=== PATIENT | male | born 1945 | race Caucasian/White ===

== ENCOUNTER 2019-04-30 08:49 | Outpatient (REF) | payer MEDICARE, OTHER, SELFPAY ==
[2019-04-30 19:15] LABS: Anion Gap 11.5 mmol/L (3-11); BUN 24 mg/dL (7-18); CO2 27.5 mmol/L (21.0-32.0); CREATININE 1.29 mg/dL (0.70-1.30); Calcium 9.3 mg/dL (8.5-10.1); Chloride 103 mmol/L (98-107); Glucose 151 mg/dL (70-100); Potassium 3.8 mmol/L (3.5-5.1); Sodium 142 mmol/L (136-145)
== END 2019-04-30 09:09 ==
LOC: NCHCN 08:49
PROVIDERS: PCP Physician Assistant; Visit Provider Physician Assistant Medical
DX: E03.9 Hypothyroidism, unspecified (principal); I10 Essential (primary) hypertension; N18.3 Chronic kidney disease, stage 3 (moderate); E11.9 Type 2 diabetes mellitus without complications
CPT/HCPCS: 80048; 84443

== ENCOUNTER 2019-10-10 11:24 | Outpatient (REF) | payer MEDICARE, OTHER, SELFPAY ==
[2019-10-10 19:41] LABS: TSH 6.98 uIU/mL (0.36-3.74)
== END 2019-10-10 11:44 ==
LOC: NCHCN 11:24
PROVIDERS: PCP Physician Assistant; Visit Provider Physician Assistant
DX: E03.9 Hypothyroidism, unspecified (principal)
CPT/HCPCS: 84443

== ENCOUNTER 2019-12-14 09:05 | Outpatient (REF) | payer MEDICARE, OTHER, SELFPAY | END 2019-12-14 09:25 | LOC: NCHCN 09:05 | PROVIDERS: PCP Physician Assistant; Visit Provider Physician Assistant | DX: E03.9 Hypothyroidism, unspecified (principal) | CPT/HCPCS: 84443 ==

== ENCOUNTER 2020-02-18 09:13 | Outpatient (REF) | payer MEDICARE, OTHER, SELFPAY ==
[2020-02-18 19:40] LABS: TSH (W/Ref FT4) 3.64 uIU/mL (0.36-3.74)
== END 2020-02-18 09:33 ==
LOC: NCHCN 09:13
PROVIDERS: PCP Physician Assistant; Visit Provider Physician Assistant
DX: E03.9 Hypothyroidism, unspecified (principal)
CPT/HCPCS: 84443

== ENCOUNTER 2020-05-02 09:48 | Outpatient (REF) | payer MEDICARE, OTHER, SELFPAY ==
[2020-05-02 19:29] LABS: Abs Immature Grans 0.02 k/cumm (0.0-0.09); Absolute Basophil Count 0.03 k/cumm (0.0-0.2); Absolute Eosinophil Count 0.23 k/cumm (0.0-0.7); Absolute Lymphocyte Count 1.42 k/cumm (1.2-3.4); Absolute Neutrophil Count 3.81 k/cumm (1.2-6.7); Basophils % 0.5; Eosinophils % 3.8; HCT 44.4 % (40.0-50.0); HGB 15.6 g/dL (13.5-17.5); Immature Grans % 0.3 %; Lymphocytes % 23.2; Mean Corp. HGB Concentration 35.1 g/dL (32.0-36.0); Mean Corpuscular Hemoglobin 32.2 pg (27.0-33.0); Mean Corpuscular Volume 91.5 fL (80-95); Mean Platelet Volume 11.9 fL (8.0-11.0); Monocytes % 9.8; Neutrophils % 62.4; Platelet Count 223 x1000/uL (130-400); RBC 4.85 m/cumm (4.50-6.00); RBC Distribution Width 13.1 % (11.8-14.1); White Blood Cell Count 6.11 k/cumm (4.4-10.8)
[2020-05-02 19:54] LABS: ALT 39 U/L (16-63); AST 27 U/L (15-37); Alkaline Phosphatase 66 U/L (46-116); BUN 29 mg/dL (7-18); Bilirubin, Total 1.3 mg/dL (0.2-1.0); CREATININE 1.54 mg/dL (0.70-1.30); Calcium 9.4 mg/dL (8.5-10.1); Calculated LDL 89 mg/dL (<100); Chloride 102 mmol/L (98-107); Cholesterol 144 mg/dL (<200); Estimated GFR 44.38 (mL/min/1.73m2); Glucose 179 mg/dL (74-106); HDL Cholesterol 35 mg/dL (40-60); Potassium 3.8 mmol/L (3.5-5.1); Sodium 140 mmol/L (136-145); TSH (W/Ref FT4) 2.18 uIU/mL (0.36-3.74); Total Protein 7.3 g/dL (6.4-8.2); Triglyceride 102 mg/dL (<150)
== END 2020-05-02 10:08 ==
LOC: NCHCN 09:48
PROVIDERS: PCP Physician Assistant; Visit Provider Physician Assistant
DX: E78.5 Hyperlipidemia, unspecified (principal); E03.9 Hypothyroidism, unspecified; I10 Essential (primary) hypertension; N18.3 Chronic kidney disease, stage 3 (moderate); E11.9 Type 2 diabetes mellitus without complications; I25.10 Atherosclerotic heart disease of native coronary artery without angina pectoris
CPT/HCPCS: 80053; 80061; 84443; 85025

== ENCOUNTER 2020-10-22 18:45 | Outpatient (REF) | payer MEDICARE, OTHER, SELFPAY ==
[2020-10-22 20:40] LABS: ALT 25 U/L (16-63); AST 18 U/L (15-37); Albumin 3.6 g/dL (3.4-5.0); Alkaline Phosphatase 67 U/L (46-116); Anion Gap 6.3 mmol/L (3-11); BUN 32 mg/dL (7-18); Bilirubin, Total 0.6 mg/dL (0.2-1.0); CO2 28.7 mmol/L (21.0-32.0); CREATININE 1.39 mg/dL (0.70-1.30); Calcium 8.9 mg/dL (8.5-10.1); Chloride 105 mmol/L (98-107); Estimated GFR 49.95 (mL/min/1.73m2); Glucose 112 mg/dL (74-106); Potassium 4.3 mmol/L (3.5-5.1); Sodium 140 mmol/L (136-145)
[2020-10-22 20:42] LABS: Hemoglobin A1C 6.4 % (<5.7)
== END 2020-10-22 19:05 ==
LOC: NCHCN 18:45
PROVIDERS: PCP Physician Assistant; Visit Provider Physician Assistant
DX: E11.9 Type 2 diabetes mellitus without complications (principal); I10 Essential (primary) hypertension; I25.10 Atherosclerotic heart disease of native coronary artery without angina pectoris; I25.2 Old myocardial infarction
CPT/HCPCS: 80053; 83036

== ENCOUNTER 2021-02-24 16:15 | Outpatient (REF) | payer MEDICARE, OTHER, SELFPAY ==
[2021-02-24 18:27] LABS: Anion Gap 10.4 mmol/L (3-11); BUN 28 mg/dL (7-18); CO2 27.6 mmol/L (21.0-32.0); CREATININE 1.3 mg/dL (0.70-1.30); Calcium 9.5 mg/dL (8.5-10.1); Chloride 107 mmol/L (98-107); Estimated GFR 53.96 (mL/min/1.73m2); Glucose 114 mg/dL (74-106); Potassium 3.9 mmol/L (3.5-5.1); Sodium 145 mmol/L (136-145)
[2021-02-24 18:35] LABS: Hemoglobin A1C 5.6 % (<5.7)
[2021-02-24 19:05] LABS: COMMENT (LAB VIEW ONLY) 101.42 mg/dL; Microalb ug/mg Crea 22.5 ug/mg Cr
== END 2021-02-24 16:16 | disposition home or self-care (01) ==
LOC: NCHCN 16:15
PROVIDERS: PCP Physician Assistant; Visit Provider Physician Assistant
DX: E11.9 Type 2 diabetes mellitus without complications (principal); I10 Essential (primary) hypertension; N18.30 Chronic kidney disease, stage 3 unspecified
CPT/HCPCS: 80048; 82043; 82570; 83036

== ENCOUNTER → 2021-02-25 13:50 | Outpatient (BNVA) | payer MEDICARE, OTHER, SELFPAY | PROVIDERS: PCP Physician Assistant; Referring Provider Physician Assistant; Visit Provider Psychiatry & Neurology Neurology | DX: I63.9 Cerebral infarction, unspecified (principal); I65.21 Occlusion and stenosis of right carotid artery; R41.3 Other amnesia | CPT/HCPCS: 99205 ==

== ENCOUNTER → 2021-06-22 12:49 | Outpatient (BNVA) | payer MEDICARE, OTHER, SELFPAY | PROVIDERS: PCP Physician Assistant; Referring Provider Physician Assistant; Visit Provider Psychiatry & Neurology Neurology | DX: I63.9 Cerebral infarction, unspecified (principal); I65.21 Occlusion and stenosis of right carotid artery; R41.3 Other amnesia; G25.0 Essential tremor; I10 Essential (primary) hypertension; E11.9 Type 2 diabetes mellitus without complications | CPT/HCPCS: 99213 ==

== ENCOUNTER 2021-06-25 15:18 | Outpatient (REF) | payer MEDICARE, OTHER, SELFPAY ==
[2021-06-25 19:16] LABS: LDL CHOLESTEROL 65 mg/dL (<100); Vitamin B12 247 pg/mL (193-986)
== END 2021-06-25 15:19 | disposition home or self-care (01) ==
LOC: NCHCN 15:18
PROVIDERS: PCP Physician Assistant; Visit Provider Physician Assistant
DX: E11.9 Type 2 diabetes mellitus without complications (principal); I10 Essential (primary) hypertension; I63.9 Cerebral infarction, unspecified; G81.94 Hemiplegia, unspecified affecting left nondominant side
CPT/HCPCS: 83721; 82607

== ENCOUNTER 2021-12-22 18:30 | Outpatient (REF) | payer MEDICARE, MEDICAID, SELFPAY ==
[2021-12-22 21:32] LABS: Anion Gap 11.3 mmol/L (3-11); BUN 28 mg/dL (7-18); CO2 26.7 mmol/L (21.0-32.0); CREATININE 1.7 mg/dL (0.70-1.30); Calcium 9.1 mg/dL (8.5-10.1); Chloride 101 mmol/L (98-107); Estimated GFR 39.49 (mL/min/1.73m2); Glucose 193 mg/dL (74-106); Potassium 3.6 mmol/L (3.5-5.1); Sodium 139 mmol/L (136-145); TSH (W/Ref FT4) 1.04 uIU/mL (0.36-3.74)
== END 2021-12-22 18:31 | disposition home or self-care (01) ==
LOC: NCHCN 18:30
PROVIDERS: PCP Physician Assistant; Visit Provider Physician Assistant
DX: I10 Essential (primary) hypertension (principal); E03.9 Hypothyroidism, unspecified
CPT/HCPCS: 80048; 84443

== ENCOUNTER 2022-01-28 16:48 | Outpatient (REF) | payer MEDICARE, MEDICAID, SELFPAY ==
[2022-01-28 19:24] LABS: Anion Gap 11.8 mmol/L (3-11); BUN 20 mg/dL (7-18); CO2 27.2 mmol/L (21.0-32.0); CREATININE 1.6 mg/dL (0.70-1.30); Calcium 8.7 mg/dL (8.5-10.1); Chloride 104 mmol/L (98-107); Estimated GFR 42.35 (mL/min/1.73m2); Glucose 202 mg/dL (74-106); Potassium 3.3 mmol/L (3.5-5.1); Sodium 143 mmol/L (136-145)
== END 2022-01-28 16:49 | disposition home or self-care (01) ==
LOC: NCHCN 16:48
PROVIDERS: PCP Physician Assistant; Visit Provider Physician Assistant
DX: N18.30 Chronic kidney disease, stage 3 unspecified (principal)
CPT/HCPCS: 80048

== ENCOUNTER 2022-02-18 15:16 | Outpatient (REF) | payer MEDICARE, MEDICAID, SELFPAY ==
[2022-02-18 21:26] LABS: Anion Gap 8.4 mmol/L (3-11); BUN 23 mg/dL (7-18); CO2 31.6 mmol/L (21.0-32.0); CREATININE 1.6 mg/dL (0.70-1.30); Calcium 9.2 mg/dL (8.5-10.1); Chloride 102 mmol/L (98-107); Estimated GFR 42.35 (mL/min/1.73m2); Glucose 150 mg/dL (74-106); Potassium 3.4 mmol/L (3.5-5.1); Sodium 142 mmol/L (136-145)
== END 2022-02-18 15:17 | disposition home or self-care (01) ==
LOC: NCHCN 15:16
PROVIDERS: PCP Physician Assistant; Visit Provider Physician Assistant
DX: N18.30 Chronic kidney disease, stage 3 unspecified (principal)
CPT/HCPCS: 80048

== ENCOUNTER 2022-03-02 17:19 | Outpatient (REF) | payer MEDICARE, MEDICAID, SELFPAY ==
[2022-03-02 18:21] LABS: Abs Immature Grans 0.02 10^3/uL (0.0-0.06); Absolute Basophil Count 0.07 10^3/uL (0.0-0.2); Absolute Eosinophil Count 0.21 10^3/uL (0.0-0.7); Absolute Lymphocyte Count 1.41 10^3/uL (1.2-3.4); Absolute Monocyte Count 0.47 10^3/uL (0.1-0.8); Absolute Neutrophil Count 4.39 10^3/uL (1.2-6.7); Basophils % 1.1; Eosinophils % 3.2; HCT 38.6 % (40.0-50.0); HGB 13.2 g/dL (13.5-17.5); Immature Grans % 0.3; Lymphocytes % 21.5; MCH 33.2 pg (27.0-33.0); MCHC 34.2 % (32.0-36.0); MPV 10.5 fL (8.0-11.0); Monocytes % 7.2; Neutrophils % 66.7; Platelet Count 263 10^3/uL (130-400); RBC 3.98 10^6/uL (4.36-5.78); RDW 12.8 % (11.8-14.1); RDW-SD 45.1 fL; WBC 6.57 10^3/uL (4.4-10.8)
[2022-03-02 19:02] LABS: Hemoglobin A1C 6.5 % (<5.7)
[2022-03-02 19:07] LABS: ALT 26 U/L (16-63); AST 19 U/L (15-37); Albumin 3.5 g/dL (3.4-5.0); Alkaline Phosphatase 79 U/L (46-116); Anion Gap 8.9 mmol/L (3-11); BUN 23 mg/dL (7-18); Bilirubin, Total 0.8 mg/dL (0.2-1.0); CO2 28.1 mmol/L (21.0-32.0); CREATININE 1.5 mg/dL (0.70-1.30); Chloride 104 mmol/L (98-107); Ferritin 370 ng/mL (26-388); Folate 8.7 ng/mL (8.6-20.0); Glucose 154 mg/dL (74-106); Magnesium 1.5 mg/dL (1.8-2.4); Potassium 3.9 mmol/L (3.5-5.1); Sodium 141 mmol/L (136-145); TSH (W/Ref FT4) 2.27 uIU/mL (0.36-3.74); Total Protein 6.7 g/dL (6.4-8.2)
[2022-03-03 05:39] LABS: Vitamin B12 1020 pg/mL (193-986)
[2022-03-04 05:59] LABS: Vitamin D 25 Total 16.6 ng/mL (30-100)
== END 2022-03-02 17:20 | disposition home or self-care (01) ==
LOC: LBN 17:19
PROVIDERS: PCP Physician Assistant; Visit Provider Nurse Practitioner Gerontology
DX: E11.22 Type 2 diabetes mellitus with diabetic chronic kidney disease (principal); I12.9 Hypertensive chronic kidney disease with stage 1 through stage 4 chronic kidney disease, or unspecified chronic kidney disease; N18.30 Chronic kidney disease, stage 3 unspecified; I63.9 Cerebral infarction, unspecified; E78.5 Hyperlipidemia, unspecified; E03.9 Hypothyroidism, unspecified; M10.9 Gout, unspecified; E53.8 Deficiency of other specified B group vitamins; I25.10 Atherosclerotic heart disease of native coronary artery without angina pectoris
CPT/HCPCS: 80053; 82306; 82607; 82728; 82746; 83036; 83735; 84443; 85025

== ENCOUNTER 2022-05-04 16:21 | Outpatient (REF) | payer MEDICARE, MEDICAID, SELFPAY ==
[2022-05-04 17:29] LABS: Abs Immature Grans 0.03 10^3/uL (0.0-0.06); Absolute Basophil Count 0.06 10^3/uL (0.0-0.2); Absolute Eosinophil Count 0.15 10^3/uL (0.0-0.7); Absolute Lymphocyte Count 1.46 10^3/uL (1.2-3.4); Absolute Monocyte Count 0.51 10^3/uL (0.1-0.8); Absolute Neutrophil Count 3.98 10^3/uL (1.2-6.7); Eosinophils % 2.4; HCT 42.9 % (40.0-50.0); HGB 14.8 g/dL (13.5-17.5); Immature Grans % 0.5; Lymphocytes % 23.6; MCH 33.4 pg (27.0-33.0); MCHC 34.5 % (32.0-36.0); MCV 97 fL (80-95); Monocytes % 8.2; Neutrophils % 64.3; RBC 4.43 10^6/uL (4.36-5.78); RDW 13.7 % (11.8-14.1); RDW-SD 43.7 fL; WBC 6.19 10^3/uL (4.4-10.8)
[2022-05-04 17:57] LABS: ALT 39 U/L (16-63); AST 22 U/L (15-37); Albumin 3.6 g/dL (3.4-5.0); Alkaline Phosphatase 60 U/L (46-116); Anion Gap 8.4 mmol/L (3-11); BUN 20 mg/dL (7-18); Bilirubin, Total 0.7 mg/dL (0.2-1.0); CO2 29.6 mmol/L (21.0-32.0); CREATININE 1.5 mg/dL (0.70-1.30); Calcium 9.2 mg/dL (8.5-10.1); Chloride 104 mmol/L (98-107); Glucose 104 mg/dL (74-106); Magnesium 1.4 mg/dL (1.8-2.4); Potassium 3.5 mmol/L (3.5-5.1); Sodium 142 mmol/L (136-145); Total Protein 6.5 g/dL (6.4-8.2)
[2022-05-04 20:44] LABS: Diff Comment PLT Morph Reviewed; Platelet Count 199 10^3/uL (130-400); RBC Morphology Normal
[2022-05-06 05:32] LABS: Vitamin D 25 Total 31.1 ng/mL (30-100)
== END 2022-05-04 16:22 | disposition home or self-care (01) ==
LOC: LBN 16:21
PROVIDERS: PCP Physician Assistant; Visit Provider Nurse Practitioner Gerontology
DX: E11.9 Type 2 diabetes mellitus without complications (principal); N18.30 Chronic kidney disease, stage 3 unspecified; E53.8 Deficiency of other specified B group vitamins; F43.21 Adjustment disorder with depressed mood; R53.1 Weakness
CPT/HCPCS: 80053; 82306; 83735; 84443; 85025

== ENCOUNTER 2022-07-16 17:19 | Outpatient (REF) | payer MEDICARE, MEDICAID, SELFPAY ==
[2022-07-16 20:00] LABS: Abs Immature Grans 0.01 10^3/uL (0.0-0.06); Absolute Basophil Count 0.04 10^3/uL (0.0-0.2); Absolute Eosinophil Count 0.12 10^3/uL (0.0-0.7); Absolute Lymphocyte Count 1.39 10^3/uL (1.2-3.4); Absolute Monocyte Count 0.42 10^3/uL (0.1-0.8); Basophils % 0.8; Eosinophils % 2.4; HCT 41.7 % (40.0-50.0); HGB 14.4 g/dL (13.5-17.5); Immature Grans % 0.2; Lymphocytes % 27.9; MCH 32.2 pg (27.0-33.0); MCHC 34.5 % (32.0-36.0); MCV 93 fL (80-95); MPV 10.9 fL (8.0-11.0); Monocytes % 8.4; Neutrophils % 60.3; Platelet Count 188 10^3/uL (130-400); RBC 4.47 10^6/uL (4.36-5.78); RDW 13.4 % (11.8-14.1); RDW-SD 44.1 fL; WBC 4.98 10^3/uL (4.4-10.8)
[2022-07-16 20:25] LABS: Bilirubin Negative (Negative); Blood Negative (Negative); Clarity Sl Cloudy (Clear); Glucose Negative (Negative); Ketones Negative (Negative); Leukocyte Esterase Negative (Negative); Nitrite Negative (Negative); Urobilinogen 0.2 EU/dL (Up TO 0.2)
[2022-07-16 20:27] LABS: ALT 31 U/L (16-63); AST 24 U/L (15-37); Albumin 3.7 g/dL (3.4-5.0); Alkaline Phosphatase 66 U/L (46-116); Anion Gap 8.7 mmol/L (3-11); BUN 30 mg/dL (7-18); Bilirubin, Total 0.6 mg/dL (0.2-1.0); CO2 29.3 mmol/L (21.0-32.0); CREATININE 1.8 mg/dL (0.70-1.30); Chloride 101 mmol/L (98-107); Estimated GFR 38.53 (mL/min/1.73m2); Glucose 84 mg/dL (74-106); Potassium 3.9 mmol/L (3.5-5.1); Sodium 139 mmol/L (136-145); TSH (W/Ref FT4) 1.16 uIU/mL (0.36-3.74); Total Protein 6.9 g/dL (6.4-8.2)
== END 2022-07-16 17:20 | disposition home or self-care (01) ==
LOC: LBN 17:19
PROVIDERS: PCP Physician Assistant; Visit Provider Nurse Practitioner Gerontology
DX: R53.83 Other fatigue (principal); R11.0 Nausea; R82.998 Other abnormal findings in urine
CPT/HCPCS: 80053; 81003; 84443; 85025; 87086

== ENCOUNTER 2022-08-24 22:42 | Outpatient (REF) | payer MEDICARE, MEDICAID, SELFPAY ==
[2022-08-24 20:03] LABS: Abs Immature Grans 0.01 10^3/uL (0.0-0.06); Absolute Basophil Count 0.04 10^3/uL (0.0-0.2); Absolute Eosinophil Count 0.25 10^3/uL (0.0-0.7); Absolute Lymphocyte Count 1.07 10^3/uL (1.2-3.4); Absolute Monocyte Count 0.39 10^3/uL (0.1-0.8); Absolute Neutrophil Count 3.08 10^3/uL (1.2-6.7); Basophils % 0.8; Eosinophils % 5.2; HCT 40.5 % (40.0-50.0); HGB 13.4 g/dL (13.5-17.5); Immature Grans % 0.2; Lymphocytes % 22.1; MCH 32.1 pg (27.0-33.0); MCHC 33.1 % (32.0-36.0); MCV 97 fL (80-95); MPV 11.3 fL (8.0-11.0); Monocytes % 8.1; Neutrophils % 63.6; Platelet Count 164 10^3/uL (130-400); RBC 4.17 10^6/uL (4.36-5.78); RDW 13.2 % (11.8-14.1); RDW-SD 46.5 fL; WBC 4.84 10^3/uL (4.4-10.8)
[2022-08-24 20:27] LABS: ALT 24 U/L (16-63); AST 20 U/L (15-37); Alkaline Phosphatase 69 U/L (46-116); Anion Gap 8.6 mmol/L (3-11); BUN 45 mg/dL (7-18); Bilirubin, Total 0.6 mg/dL (0.2-1.0); CO2 31.4 mmol/L (21.0-32.0); CREATININE 2.6 mg/dL (0.70-1.30); Calcium 9.6 mg/dL (8.5-10.1); Chloride 100 mmol/L (98-107); Estimated GFR 24.78 (mL/min/1.73m2); Glucose 143 mg/dL (74-106); Magnesium 2.1 mg/dL (1.8-2.4); Potassium 4.1 mmol/L (3.5-5.1); Sodium 140 mmol/L (136-145)
== END 2022-08-24 22:43 | disposition home or self-care (01) ==
LOC: LBN 22:42
PROVIDERS: PCP Physician Assistant; Visit Provider Nurse Practitioner Gerontology
DX: E78.5 Hyperlipidemia, unspecified (principal); E11.9 Type 2 diabetes mellitus without complications; N18.30 Chronic kidney disease, stage 3 unspecified; I10 Essential (primary) hypertension; E03.9 Hypothyroidism, unspecified
CPT/HCPCS: 80053; 83735; 85025

== ENCOUNTER → 2022-09-02 03:03 | Outpatient (CLI) | payer MEDICARE, MEDICAID, SELFPAY ==
--- NOTE | 2022-09-02 10:30 | DI.RAD_ITS ---
Exam(s) XR FOOT LT COMPLETE XR ANKLE LT COMPLETE EXAM: XR FOOT LT COMPLETE and XR ankle LT complete CLINICAL HISTORY: EXTERNAL ROTATION. TECHNIQUE: 2D digital imaging was performed of the left foot. Seven images were obtained. AP, obli que and lateral views were obtained. COMPARISON: None FINDINGS: BONES: No acute fracture is present. No bony destructive lesion is seen. There is a small plantar david caneal spur. There is an enthesophyte at the Achilles insertion site. JOINTS: There is a marked hallux valgus deformity. Hammertoe deformities of the 2nd through 5th toes are noted. There are hypertrophic changes at the articulation of the navicular and the cuneiform. The ankle joint is well maintained. The bones are normally mineralized. SOFT TISSUE: Normal. IMPRESSION: Chronic changes and degenerative changes in the foot. DATA REPOSITORY: RADIATION DOSE DELIVERED:
--- NOTE | 2022-09-02 10:30 | DI.RAD_ITS ---
Exam(s) XR LUMBAR SPINE COMPLETE EXAM: XR LUMBAR SPINE COMPLETE CLINICAL HISTORY: BACK PAIN. TECHNIQUE: 2D digital imaging was performed of the lumbar spine. Images were obtained. AP, later al, right oblique, left oblique and L5-S1 spot views were obtained. COMPARISON: No exams were available for comparison FINDINGS: BONES: No fracture or destructive lesion. Endplate osteophytes are present throughout the lumbar spin e. Facet hypertrophy is seen at L4-5 and L5-S1. DISKS: There is disc space narrowing at all levels of the lumbar spine. ALIGNMENT: There is a mild left convex curvature of the lumbar spine. No spondylolysis or spondyloli sthesis. SOFT TISSUE: There are gallstones present. Atherosclerosis is present. IMPRESSION: 1. Degenerative changes in the spine. 2. Cholelithiasis. DATA REPOSITORY: RADIATION DOSE DELIVERED:
== END ==
PROVIDERS: PCP Physician Assistant; Visit Provider Nurse Practitioner Gerontology
DX: K80.20 Calculus of gallbladder without cholecystitis without obstruction (principal); M47.816 Spondylosis without myelopathy or radiculopathy, lumbar region; M19.072 Primary osteoarthritis, left ankle and foot
CPT/HCPCS: 72110; 73610; 73630

== ENCOUNTER 2022-09-02 17:15 | Outpatient (REF) | payer MEDICARE, MEDICAID, SELFPAY ==
[2022-09-02 18:26] LABS: Abs Immature Grans 0.03 10^3/uL (0.0-0.06); Absolute Basophil Count 0.04 10^3/uL (0.0-0.2); Absolute Eosinophil Count 0.23 10^3/uL (0.0-0.7); Absolute Lymphocyte Count 1.18 10^3/uL (1.2-3.4); Absolute Monocyte Count 0.68 10^3/uL (0.1-0.8); Absolute Neutrophil Count 7.98 10^3/uL (1.2-6.7); Basophils % 0.4; Eosinophils % 2.3; HCT 41.1 % (40.0-50.0); HGB 14.3 g/dL (13.5-17.5); Immature Grans % 0.3; Lymphocytes % 11.6; MCH 33.4 pg (27.0-33.0); MCHC 34.8 % (32.0-36.0); MCV 96 fL (80-95); MPV 11.1 fL (8.0-11.0); Monocytes % 6.7; Neutrophils % 78.7; Platelet Count 194 10^3/uL (130-400); RBC 4.28 10^6/uL (4.36-5.78); RDW 13.4 % (11.8-14.1); RDW-SD 45.3 fL; WBC 10.14 10^3/uL (4.4-10.8)
[2022-09-02 18:40] LABS: ALT 18 U/L (16-63); AST 25 U/L (15-37); Albumin 4.2 g/dL (3.4-5.0); Alkaline Phosphatase 78 U/L (46-116); Amylase 26 U/L (25-115); Anion Gap 6.2 mmol/L (3-11); BUN 51 mg/dL (7-18); Bilirubin, Total 0.7 mg/dL (0.2-1.0); CO2 32.8 mmol/L (21.0-32.0); CREATININE 2.9 mg/dL (0.70-1.30); Chloride 101 mmol/L (98-107); Estimated GFR 21.74 (mL/min/1.73m2); Glucose 132 mg/dL (74-106); Lipase 64 U/L (73-393); Potassium 4.4 mmol/L (3.5-5.1); Sodium 140 mmol/L (136-145); Total Protein 7.6 g/dL (6.4-8.2)
== END 2022-09-02 17:16 | disposition home or self-care (01) ==
LOC: LBN 17:15
PROVIDERS: PCP Physician Assistant; Visit Provider Nurse Practitioner Gerontology
DX: R53.1 Weakness (principal); R68.89 Other general symptoms and signs; K82.9 Disease of gallbladder, unspecified; K80.20 Calculus of gallbladder without cholecystitis without obstruction
CPT/HCPCS: 80053; 83690; 82150; 85025

== ENCOUNTER 2022-09-22 17:28 | Outpatient (REF) | payer MEDICARE, MEDICAID, SELFPAY ==
[2022-09-22 17:15] LABS: Abs Immature Grans 0.02 10^3/uL (0.0-0.06); Absolute Basophil Count 0.04 10^3/uL (0.0-0.2); Absolute Lymphocyte Count 0.76 10^3/uL (1.2-3.4); Absolute Monocyte Count 0.41 10^3/uL (0.1-0.8); Absolute Neutrophil Count 4.65 10^3/uL (1.2-6.7); Basophils % 0.7; Eosinophils % 1.7; HCT 42.5 % (40.0-50.0); HGB 13.8 g/dL (13.5-17.5); Immature Grans % 0.3; Lymphocytes % 12.7; MCH 31.1 pg (27.0-33.0); MCHC 32.5 % (32.0-36.0); MCV 96 fL (80-95); MPV 11.5 fL (8.0-11.0); Monocytes % 6.9; Neutrophils % 77.7; Platelet Count 166 10^3/uL (130-400); RBC 4.44 10^6/uL (4.36-5.78); RDW 13.5 % (11.8-14.1); RDW-SD 47.3 fL; WBC 5.98 10^3/uL (4.4-10.8)
[2022-09-22 17:17] LABS: Bilirubin Moderate (Negative); Blood Negative (Negative); Clarity Clear (Clear); Glucose Negative (Negative); Ketones Trace mg/dL (Negative); Leukocyte Esterase Negative (Negative); Nitrite Negative (Negative); Specific Gravity 1.025 (1.005-1.025); Urobilinogen 0.2 EU/dL (Up TO 0.2)
[2022-09-22 17:29] LABS: Iron 68 ug/dL (65-175); Total Iron Binding Capacity 199 ug/dL (250-450); Transferrin Sat 34 % (20-55)
[2022-09-22 17:33] LABS: Hemoglobin A1C 6.1 % (<5.7)
[2022-09-22 18:02] LABS: ALT 23 U/L (16-63); AST 30 U/L (15-37); Albumin 4.1 g/dL (3.4-5.0); Alkaline Phosphatase 67 U/L (46-116); BUN 59 mg/dL (7-18); Bilirubin, Total 0.8 mg/dL (0.2-1.0); CREATININE 3.5 mg/dL (0.70-1.30); Calcium 9.7 mg/dL (8.5-10.1); Chloride 99 mmol/L (98-107); Estimated GFR 17.35 (mL/min/1.73m2); Glucose 115 mg/dL (74-106); Magnesium 2.1 mg/dL (1.8-2.4); Potassium 4.1 mmol/L (3.5-5.1); Sodium 137 mmol/L (136-145); TSH (W/Ref FT4) 1.88 uIU/mL (0.36-3.74); Total Protein 7.3 g/dL (6.4-8.2); Vitamin B12 1651 pg/mL (193-986)
[2022-09-22 18:03] LABS: Ferritin 1285 ng/mL (26-388); Folate > 20.0 ng/mL (8.6-20.0)
[2022-09-22 18:24] LABS: NT-proBNP 355 pg/mL (<300)
[2022-09-23 04:58] LABS: Vitamin D 25 Total 24.7 ng/mL (30-100)
== END 2022-09-22 17:29 | disposition home or self-care (01) ==
LOC: LBN 17:28
PROVIDERS: PCP Physician Assistant; Visit Provider Nurse Practitioner Gerontology
DX: E11.9 Type 2 diabetes mellitus without complications (principal); M62.81 Muscle weakness (generalized); N18.30 Chronic kidney disease, stage 3 unspecified; M10.9 Gout, unspecified; I10 Essential (primary) hypertension
CPT/HCPCS: 80053; 82306; 81003; 82607; 82728; 82746; 83036; 83540; 83550; 83735; 83880; 84443; 84550; 85025; 87086

== ENCOUNTER 2022-09-27 20:02 | Outpatient (REF) | payer MEDICARE, MEDICAID, SELFPAY ==
[2022-09-27 21:41] LABS: Abs Immature Grans 0.01 10^3/uL (0.0-0.06); Absolute Basophil Count 0.04 10^3/uL (0.0-0.2); Absolute Eosinophil Count 0.24 10^3/uL (0.0-0.7); Absolute Lymphocyte Count 1.11 10^3/uL (1.2-3.4); Absolute Monocyte Count 0.29 10^3/uL (0.1-0.8); Absolute Neutrophil Count 2.78 10^3/uL (1.2-6.7); Basophils % 0.9; Eosinophils % 5.4; HCT 40.7 % (40.0-50.0); HGB 14.1 g/dL (13.5-17.5); Immature Grans % 0.2; Lymphocytes % 24.8; MCH 32.7 pg (27.0-33.0); MCHC 34.6 % (32.0-36.0); MCV 94 fL (80-95); Monocytes % 6.5; Neutrophils % 62.2; Platelet Count 163 10^3/uL (130-400); RBC 4.31 10^6/uL (4.36-5.78); RDW 13.3 % (11.8-14.1); WBC 4.47 10^3/uL (4.4-10.8)
[2022-09-27 22:17] LABS: Iron 91 ug/dL (65-175); Total Iron Binding Capacity 198 ug/dL (250-450); Transferrin Sat 46 % (20-55)
[2022-09-27 22:29] LABS: ALT 23 U/L (16-63); AST 25 U/L (15-37); Albumin 4.1 g/dL (3.4-5.0); Alkaline Phosphatase 61 U/L (46-116); Anion Gap 11.7 mmol/L (3-11); BUN 56 mg/dL (7-18); Bilirubin, Total 0.8 mg/dL (0.2-1.0); CO2 28.3 mmol/L (21.0-32.0); CREATININE 2.6 mg/dL (0.70-1.30); Calcium 9.9 mg/dL (8.5-10.1); Chloride 97 mmol/L (98-107); Estimated GFR 24.78 (mL/min/1.73m2); Glucose 118 mg/dL (74-106); NT-proBNP 352 pg/mL (<300); Potassium 3.2 mmol/L (3.5-5.1); Sodium 137 mmol/L (136-145); Total Protein 7.1 g/dL (6.4-8.2); Uric Acid 8.8 mg/dL (3.5-7.2)
[2022-09-29 10:51] LABS: Ferritin 623 ng/mL (22-322)
== END 2022-09-27 20:03 | disposition home or self-care (01) ==
LOC: LBN 20:02
PROVIDERS: PCP Physician Assistant; Visit Provider Nurse Practitioner Gerontology
DX: M10.9 Gout, unspecified (principal); D64.9 Anemia, unspecified; I25.10 Atherosclerotic heart disease of native coronary artery without angina pectoris; N18.30 Chronic kidney disease, stage 3 unspecified; R68.89 Other general symptoms and signs
CPT/HCPCS: 80053; 82728; 83540; 83550; 83880; 84550; 85025

== ENCOUNTER 2022-10-11 19:34 | Outpatient (REF) | payer MEDICARE, MEDICAID, SELFPAY ==
[2022-10-11 20:00] LABS: Abs Immature Grans 0.01 10^3/uL (0.0-0.06); Absolute Basophil Count 0.04 10^3/uL (0.0-0.2); Absolute Eosinophil Count 0.21 10^3/uL (0.0-0.7); Absolute Lymphocyte Count 1.79 10^3/uL (1.2-3.4); Absolute Monocyte Count 0.41 10^3/uL (0.1-0.8); Absolute Neutrophil Count 3.41 10^3/uL (1.2-6.7); Basophils % 0.7; Eosinophils % 3.6; HCT 37.5 % (40.0-50.0); HGB 12.9 g/dL (13.5-17.5); Immature Grans % 0.2; Lymphocytes % 30.5; MCH 32.7 pg (27.0-33.0); MCHC 34.4 % (32.0-36.0); MCV 95 fL (80-95); MPV 10.9 fL (8.0-11.0); Platelet Count 189 10^3/uL (130-400); RBC 3.95 10^6/uL (4.36-5.78); RDW 13.8 % (11.8-14.1); RDW-SD 46.8 fL; WBC 5.87 10^3/uL (4.4-10.8)
[2022-10-11 20:32] LABS: ALT 18 U/L (16-63); AST 17 U/L (15-37); Albumin 3.4 g/dL (3.4-5.0); Alkaline Phosphatase 63 U/L (46-116); Anion Gap 5.3 mmol/L (3-11); BUN 23 mg/dL (7-18); Bilirubin, Total 0.7 mg/dL (0.2-1.0); CO2 32.7 mmol/L (21.0-32.0); CREATININE 1.9 mg/dL (0.70-1.30); Calcium 9.5 mg/dL (8.5-10.1); Chloride 105 mmol/L (98-107); Estimated GFR 36.11 (mL/min/1.73m2); Ferritin 816 ng/mL (26-388); Glucose 130 mg/dL (74-106); Potassium 3.4 mmol/L (3.5-5.1); Sodium 143 mmol/L (136-145); Total Protein 6.4 g/dL (6.4-8.2)
[2022-10-11 20:47] LABS: Uric Acid 7.6 mg/dL (3.5-7.2)
[2022-10-12 13:56] LABS: NT-proBNP 503 pg/mL (<300)
== END 2022-10-11 19:35 | disposition home or self-care (01) ==
LOC: LBN 19:34
PROVIDERS: PCP Physician Assistant; Visit Provider Nurse Practitioner Gerontology
DX: E11.9 Type 2 diabetes mellitus without complications (principal); R68.89 Other general symptoms and signs; M10.9 Gout, unspecified; E03.9 Hypothyroidism, unspecified
CPT/HCPCS: 80053; 82728; 83880; 84550; 85025

== ENCOUNTER 2022-11-09 22:42 | Inpatient (IN) | payer MEDICARE, MEDICAID, SELFPAY ==
[2022-11-09 22:50] VITALS: BP 141/78; PULSE 73; RESP 20; TEMP 36.8; O2SAT 88
--- NOTE | 2022-11-09 23:00 | RT.EKG_ITS ---
APPROVED REPORT Exam: Resting ECG Reason for Exam: hypoxia Patient Location: E HR:88 bpm ECG Measurements Heart Rate 88 AXIS LA 207 P 89 QRSd 142 QRS -64 QT 402 T 101 QTc 487 Conclusion Sinus rhythm...normal P axis, V-rate 60- 99 Left ventricular hypertrophy...multiple LVH criteria Anterior infarct, old...Q >40mS, abnormal ST-T, V2-V5
--- NOTE | 2022-11-09 23:00 | DI.CT_ITS ---
Exam(s) CT CHEST PE CTA EXAM: CT CHEST PE CTA CLINICAL HISTORY: hypoxia. TECHNIQUE: Imaging Protocol: Axial CT angiography was performed with multi-slice acquisition and mu lti-planar reconstructions as well as axial, coronal and sagittal MIP reconstructions. CONTRAST MATERIAL: Intravenous: Omnipaque 350 Contrast volume:85 ml COMPARISON: No exams were available for comparison FINDINGS: Pulmonary Arteries: No evidence of filling defect to suggest pulmonary emboli. Tracheobronchial tree: Patent where visualized. Mediastinum and Emerald: No dominant adenopathy or fluid collection. Pulmonary parenchyma: Evaluation limited due to respiratory motion particularly at the lung bases. A telectasis left lung base. Lungs otherwise clear. No consolidation or dominant measurable mass. Pleura: No effusion or pneumothorax. Heart: The heart is not dilated. Mild coronary artery calcifications are seen. Aorta: Thoracic aorta non-dilated. No aneurysm. No dissection. Upper abdomen: Cholelithiasis Bones: Old left rib fractures. No acute rib or spine fracture identified. Tubes, Catheters, and Lines: IMPRESSION: No evidence of pulmonary embolism or other acute abnormality.. RADIATION DOSE DELIVERED: 449.29mGy.cm Total DLP DATA REPOSITORY: All CT scans at this facility are submitted to the National Radiology Data Registry (NRDR) Dose Index Registry (DIR) with the [employer] (ACR). RADIATION OPTIMIZATION: All CT scans at this facility use at least one of these dose optimization te chniques: automated exposure control; mA and/or kV adjustment per patient size (includes targeted exa ms where dose is matched to clinical indication); or iterative reconstruction.
--- NOTE | 2022-11-09 23:00 | DI.CT_ITS ---
Exam(s) CT PELVIC WO XR PELVIS AP XR FEMUR LT EXAM: XR PELVIS AP CLINICAL HISTORY: fracture. TECHNIQUE: 2D digital imaging was performed. COMPARISON: CT CT PELVIC WO from 11/10/2022 left femur 11/10/2022 FINDINGS: Acute nondisplaced fracture subcapital region left femur. No additional fractures seen distally in t he femur or in the pelvis. Degenerative changes noted at the hips, lower lumbar spine and left knee. Old bilateral L5 spondylolysis and slight spondylolisthesis. Soft tissues: Unremarkable. Large quantity of stool in rectum. IMPRESSION: Nondisplaced subcapital fracture left femur. DATA REPOSITORY: RADIATION DOSE DELIVERED:
--- NOTE | 2022-11-09 23:00 | DI.CT_ITS ---
Exam(s) CT HEAD WO EXAM: CT HEAD WO CLINICAL HISTORY: fall, pain. TECHNIQUE: Imaging Protocol: Axial computed tomography images with coronal and sagittal reformatted images were created and reviewed COMPARISON: No exams were available for comparison FINDINGS: Ventricles and Extra axial spaces: Normal in size and morphology for the patient's age. Mild atrophy. Hemorrhage: None. Cerebral parenchyma: Large areas of old infarct in the right middle cerebral artery territory as well as right posterior cerebral artery territory. Midline shift: None. Brainstem/Cerebellum: Normal. Calvarium: Normal. Visualized Paranasal sinuses/Mastoids: Clear. Soft Tissues: Unremarkable. IMPRESSION: Large areas of encephalomalacia consistent with old right MCA and CASH REGISTER OPERATOR territory infarcts. RADIATION DOSE DELIVERED: 796.17mGy.cm Total DLP DATA REPOSITORY: All CT scans at this facility are submitted to the National Radiology Data Registry (NRDR) Dose Index Registry (DIR) with the [employer] (ACR). RADIATION OPTIMIZATION: All CT scans at this facility use at least one of these dose optimization te chniques: automated exposure control; mA and/or kV adjustment per patient size (includes targeted exa ms where dose is matched to clinical indication); or iterative reconstruction.
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
[2022-11-09 23:27] LABS: Abs Immature Grans 0.03 10^3/uL (0.0-0.06); Absolute Basophil Count 0.04 10^3/uL (0.0-0.2); Absolute Lymphocyte Count 0.99 10^3/uL (1.2-3.4); Absolute Monocyte Count 0.31 10^3/uL (0.1-0.8); Absolute Neutrophil Count 3.79 10^3/uL (1.2-6.7); Basophils % 0.8; Eosinophils % 1.9; HCT 34.4 % (40.0-50.0); HGB 11.5 g/dL (13.5-17.5); Immature Grans % 0.6; Lymphocytes % 18.8; MCH 31.2 pg (27.0-33.0); MCHC 33.4 % (32.0-36.0); MCV 93 fL (80-95); MPV 10.8 fL (8.0-11.0); Monocytes % 5.9; Platelet Count 155 10^3/uL (130-400); RBC 3.69 10^6/uL (4.36-5.78); RDW 14.1 % (11.8-14.1); WBC 5.26 10^3/uL (4.4-10.8)
[2022-11-09 23:36] LABS: INR 1.1 (0.9-1.1)
[2022-11-09 23:37] LABS: ALT 11 U/L (16-63); AST 19 U/L (15-37); Albumin 3.1 g/dL (3.4-5.0); Alkaline Phosphatase 71 U/L (46-116); Anion Gap 9.2 mmol/L (3-11); BUN 16 mg/dL (7-18); Bilirubin, Total 0.8 mg/dL (0.2-1.0); CO2 27.8 mmol/L (21.0-32.0); CREATININE 1.6 mg/dL (0.70-1.30); Calcium 8.6 mg/dL (8.5-10.1); Chloride 105 mmol/L (98-107); Estimated GFR 44.38 (mL/min/1.73m2); Glucose 109 mg/dL (74-106); Magnesium 1.5 mg/dL (1.8-2.4); Potassium 3.1 mmol/L (3.5-5.1); Sodium 142 mmol/L (136-145); Total Protein 6.2 g/dL (6.4-8.2)
[2022-11-09 23:42] LABS: Troponin I 51 ng/L (<or=60)
[2022-11-09 23:48] VITALS: PULSE 74; RESP 18; O2SAT 88
[2022-11-09] MEDS: Albuterol/Ipratropium 3 ML UPD VIAL UPD (23:48)
[2022-11-09] MEDS: Acetaminophen 500 MG TAB 1000 MG PO (23:49)
[2022-11-10] VITALS (21 sets, daily range): BP systolic 101–159; BP diastolic 61–97; PULSE 56–92; RESP 10–18; TEMP 36.2–37.7; O2SAT 85–98; BMI 34.9
--- NOTE | 2022-11-10 00:25 | DI.VRAD_ITS ---
PROCEDURE INFORMATION: Exam: CT Pelvis Without Contrast; Skeletal Exam date and time: 11/10/2022 12:04 AM Age: 77 years old Clinical indication: Injury or trauma; Blunt trauma (contusions or hematomas); Left; Injury date: 11/09/22; Injury details: Fall hip L pain TECHNIQUE: Imaging protocol: Computed tomography of the pelvis without contrast. Exam focused on the skeleton. Radiation optimization: All CT scans at this facility use at least one of these dose optimization techniques: automated exposure control; mA and/or kV adjustment per patient size (includes targeted exams where dose is matched to clinical indication); or iterative reconstruction. COMPARISON: CR XR LUMBAR SPINE COMPLETE 09/02/2022 10:29 AM FINDINGS: Bones/joints: acute fracture of the left femoral neck. Degenerative change of the spine. Soft tissues: Unremarkable. IMPRESSION: Acute fracture of the left femoral neck. Dictated and Authenticated by: Félix Bailey MD. Ordering:RADHA Heard MD
--- NOTE | 2022-11-10 00:27 | DI.VRAD_ITS ---
PROCEDURE INFORMATION: Exam: CT Head Without Contrast Exam date and time: 11/09/2022 11:50 PM Age: 77 years old Clinical indication: Injury or trauma; Blunt trauma (contusions or hematomas); Consciousness not specified; Injury date: 11/09/22; Injury details: Fall, pain; Patient HX: HX of CVA TECHNIQUE: Imaging protocol: Computed tomography of the head without contrast. Radiation optimization: All CT scans at this facility use at least one of these dose optimization techniques: automated exposure control; mA and/or kV adjustment per patient size (includes targeted exams where dose is matched to clinical indication); or iterative reconstruction. COMPARISON: No relevant prior studies available. FINDINGS: Brain: Prominence of cerebral sulci reflects cerebral atrophy. Confluent zones of cystic encephalomalacia/volume loss consistent with a large chronic right MCA infarct and a chronic right DOSIMETRIST infarct are identified and a few small and poorly marginated hypodensities are also seen scattered throughout the remaining deep and periventricular white matter of both cerebral hemispheres consistent with underlying microvascular ischemic changes. Will area degeneration related chronic right-sided infarct results in smaller size of the right cerebral peduncle and the cerebellum is unremarkable. There is no evidence of acute transcortical infarction or recent intracranial hemorrhage. Cerebral ventricles: No midline shift or hydrocephalus. Paranasal sinuses: Grossly clear throughout. Mastoid air cells: Grossly clear bilaterally. Probable cerumen seen in the external auditory canals bilaterally. Bones/joints: Bony calvarium and skull base are intact and no acute fractures are detected. Soft tissues: Unremarkable. IMPRESSION: Cerebral atrophy and probable microvascular ischemic changes with superimposed chronic zones of cystic encephalomalacia/volume loss seen related to previous right MCA and DOSIMETRIST infarcts as above. There is no evidence of acute transcortical infarction, recent hemorrhage or hydrocephalus. No acute intracranial process is detected. Dictated and Authenticated by: Nader Wells MD. Ordering:RADHA Heard MD
--- NOTE | 2022-11-10 00:29 | DI.VRAD_ITS ---
PROCEDURE INFORMATION: Exam: CTA Chest With Contrast Exam date and time: 11/10/2022 12:08 AM Age: 77 years old Clinical indication: Other: Hypoxia TECHNIQUE: Imaging protocol: Computed tomographic angiography of the chest with contrast. 3D rendering (Not supervised by radiologist): MIP and/or 3D reconstructed images were created by the technologist. Radiation optimization: All CT scans at this facility use at least one of these dose optimization techniques: automated exposure control; mA and/or kV adjustment per patient size (includes targeted exams where dose is matched to clinical indication); or iterative reconstruction. Contrast material: OMNIPAQUE 350; Contrast volume: 85 ml; Contrast route: INTRAVENOUS (IV); COMPARISON: No relevant prior studies available. FINDINGS: Pulmonary arteries: Normal. No pulmonary emboli. Aorta: Unremarkable. No aortic aneurysm. No aortic dissection. Lungs: Unremarkable. No consolidation. No masses. Pleural spaces: Unremarkable. No pneumothorax. No pleural effusion. Heart: Unremarkable. No cardiomegaly. No pericardial effusion. Lymph nodes: Unremarkable. No enlarged lymph nodes. Gallbladder and bile ducts: Cholelithiasis. Bones/joints: Unremarkable. No acute fracture. Soft tissues: Unremarkable. IMPRESSION: No acute finding. Dictated and Authenticated by: Félix Bailey MD. Ordering:RADHA Heard MD
[2022-11-10] MEDS: Omnipaque 350 MG/ML 100 ML BTL IJ (00:32)
[2022-11-10] MEDS: Normal Saline - Diluent 50 ML VIAL IJ (00:33)
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
[2022-11-10] MEDS: MORPHine 4 MG/ML SYR IVP (00:45)
[2022-11-10] MEDS: MAGNESIUM SULFATE 2 GM/50 ML BAG IVPB (01:19)
--- NOTE | 2022-11-10 01:23 | DI.VRAD_ITS ---
PROCEDURE INFORMATION: Exam: XR Left Femur Exam date and time: 11/10/2022 1:02 AM Age: 77 years old Clinical indication: Injury or trauma; Fall; Blunt trauma; Hip and thigh or upper leg; Left; Injury date: 11/09/21 TECHNIQUE: Imaging protocol: Radiologic exam of the Left femur. Views: 2 views. COMPARISON: CR XR PELVIS AP 11/10/2022 1:00 AM FINDINGS: Bones/joints: Acute left femoral neck fracture. Soft tissues: Unremarkable. IMPRESSION: Acute left femoral neck fracture. Dictated and Authenticated by: Félix Bailey MD. Ordering:RADHA Heard MD
--- NOTE | 2022-11-10 01:28 | DI.VRAD_ITS ---
PROCEDURE INFORMATION: Exam: XR Pelvis Exam date and time: 11/10/2022 1:00 AM Age: 77 years old Clinical indication: Injury or trauma; Blunt trauma (contusions or hematomas); Left; Hip; Injury date: 11/09/22; Injury details: Fall, FX TECHNIQUE: Imaging protocol: Radiologic exam of the pelvis. Views: 1 or 2 view. COMPARISON: CT PELVIC WO 11/10/2022 12:04 AM FINDINGS: Bones/joints: Acute fracture of the left femoral neck. Soft tissues: Unremarkable. IMPRESSION: Acute fracture of the left femoral neck. Dictated and Authenticated by: Félix Bailey MD. Ordering:RADHA Heard MD
[2022-11-10 05:39] LABS: Source Nasal/Nares
[2022-11-10] MEDS: MORPHine 10 MG/ML VIAL 2 MG IVP (06:03)
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
[2022-11-10 06:09] LABS: COVID-19 PCR Negative (Negative)
[2022-11-10 06:38] LABS: HCT 36.2 % (40.0-50.0); MCH 31.3 pg (27.0-33.0); MCHC 33.1 % (32.0-36.0); MCV 95 fL (80-95); MPV 10.6 fL (8.0-11.0); Platelet Count 146 10^3/uL (130-400); RBC 3.83 10^6/uL (4.36-5.78); RDW 14.1 % (11.8-14.1); RDW-SD 48.8 fL; WBC 10.87 10^3/uL (4.4-10.8)
[2022-11-10 06:48] LABS: ALT 14 U/L (16-63); AST 22 U/L (15-37); Albumin 3.1 g/dL (3.4-5.0); Alkaline Phosphatase 73 U/L (46-116); Anion Gap 6.2 mmol/L (3-11); BUN 16 mg/dL (7-18); Bilirubin, Total 0.8 mg/dL (0.2-1.0); CO2 28.8 mmol/L (21.0-32.0); CREATININE 1.7 mg/dL (0.70-1.30); Calcium 8.5 mg/dL (8.5-10.1); Chloride 109 mmol/L (98-107); Estimated GFR 41.26 (mL/min/1.73m2); Glucose 117 mg/dL (74-106); Magnesium 2.1 mg/dL (1.8-2.4); Potassium 3.6 mmol/L (3.5-5.1); Sodium 144 mmol/L (136-145); Total Protein 6.1 g/dL (6.4-8.2)
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
[2022-11-10] MEDS: Normal Saline Flush 10 ML SYR IVP (10:04)
[2022-11-10] MEDS: Normal Saline 1,000 ML 100 ML IV ×2 (10:05→21:49)
[2022-11-10] MEDS: POTASSIUM CHLORIDE 20 MEQ/100 ML BAG 50 MEQ IVPB ×2 (10:05→14:50)
[2022-11-10] MEDS: Levothyroxine 88 MCG TAB PO (10:06)
[2022-11-10] MEDS: Lisinopril 20 MG TAB 40 MG PO (10:06)
[2022-11-10] MEDS: Lactated Ringers 1,000 ML 30 ML IV (11:45)
[2022-11-10] MEDS: Tranexamic Acid 1,000 MG/10 ML VIAL 1000 MG (12:15)
--- NOTE | 2022-11-10 12:44 | DI.RAD_ITS ---
Exam(s) XR HIP LT IN OR EXAM: XR HIP LT IN OR CLINICAL HISTORY: fractured left hip. TECHNIQUE: 2D and realtime digital imaging was performed. COMPARISON: No exams were available for comparison FINDINGS: Fluoroscopy was provided in the OR for Dr. Sadler. Hard copy images show placement of 3 partially threaded screws through the proximal femur for fracture fixation. Please see procedure note for details. Fluoro time: 61.02seconds RADIATION DOSE DELIVERED: colleen Pratt=5.89 mGy
--- NOTE | 2022-11-10 13:08 | W.PM.OP ---
Date of service: 11/10/22 Time of Service: 13:08 Operative Note Operative Note DATE OF PROCEDURE: 07/31/22 PRE-OP DIAGNOSIS: Left Femoral Neck Femur Fracture POST-OP DIAGNOSIS: same PROCEDURE: Cannulated Screw Fixation of Proximal Femur Fracture - LEFT SURGEON: Bhavin Sadler ANESTHESIA TYPE: General LMA/ETT Refer to Anesthesia Record ESTIMATED BLOOD LOSS: 10 PATHOLOGY: none sent COMPLICATIONS: None Patient was transported to: PACU Patient's condition: stable Implants: Synthes 7.3mm cannulated screws (x3) Indications: Epi is a 77 year old male and resident of the [facility] who presented to the Emergency Department after a fall. X-rays confirmed the diagnosis of a femoral neck fracture of the proximal femur without significant displacement or comminution. I reviewed the possible treatment options and given the fracture of the femur, I recommended operative fixation. I discussed the technical details of the surgery. I reviewed the risks such as bleeding, infection, pain, stiffness, malunion, nonunion, hardware prominence, hardware faiilure, malrotation, avascular necrosis, blood clot. Despite these risks, he agreed to proceed. Findings: A femoral neck fracture was confirmed to be stable and thus secured with #3- 7.3mm cannulated screws in a percutaneous fashion. Procedure Description: Epi was taken back to the operating room. A general anesthetic was then administered. The feet were wrapped with cast padding and Coban and then placed into the boot liners and then into the boots. Care was taken to protect the skin and make sure the heels were fully down and the boots were stable. The patient was then positioned onto the HANA table. Both legs were held in a neutral position. SCDs were applied. The patient was then slid down onto a perineal post. The arm of the operative side was then placed across the chest and secured. The nonoperative leg was scissored. A gentle reduction was then performed with traction and internal rotation and gentle external manipulation. Prophylactic antibiotics in the form of Cefazolin were administered. 1g of Tranxemic Acid was given intravenously within 30 minutes of incision. The left leg was then prepped with Chloraprep and draped in a standard fashion with shower-curtain type drape with Iodine impregnated skin protection. A timeout to confirm correct identity, side and site, procedure, allergies, anesthesia, and medical concerns was performed. Using fluoroscopy, the starting point was marked over the lateral hip. The first pin was placed into a posterior?inferior position to form an inverted triangle. This was made sure to start proximal of the lesser trochanter. It was advanced into the femoral head and confirmed to be in a good position both on the AP and the lateral. 2 additional pins from the 7.3 mm cannulated system replaced, both superior, 1 anterior 1 posterior. These were once again confirmed to be in good position on fluoroscopy. They were advanced to the appropriate position in the path of the pin was cut with a knife. The pin length was measured and the lateral cortex was opened with a drill. The appropriate sized screws were then placed loosely. Once all 3 were in position I then proceeded circumferentially tightening each screw by 1 or 2 turns into each were tightened. These had excellent fixation. There is no screw penetration in the head and no penetration within the lateral cortex. AP and lateral x-rays were once again obtained to confirm appropriate positioning throughout both planes and without displacement nor fracture propagation. The wounds were thoroughly irrigated. A cocktail consisting of 123mg of Ropivacaine, 0.25mg of Epinephrine, 0.04mg of Clonidine, and 15mg of Ketorolac, diluted to 50cc was injected throughout the wounds both deep and superficially. The deep fascia of the proximal two wounds was reapproximated with a 0 Vicryl. The deep tisses were closed with a subcuticular Monocryl. The wounds were dressed with a Mepilex silver dressing. At the end of the case, all counts were correct. Deyvi tolerated the procedure well without known complication and was taken to the PACU for recovery. Physical therapy will start post-operatively, weigh-bearing as tolerated with assistive devices. Anticoagulation will start within 12-24 hours. 3 doses of post-operative antibitiocis for prophylaxis will be administered.
--- NOTE | 2022-11-10 13:33 | W.ANESPOSTOP ---
Postoperative Evaluation Date, Time and Location Date Performed: 11/10/22 Time Performed: 13:33 Patient Location: PACU Vital Signs Most Recent Imported Vital Signs: Most Recent Vital Signs Temp Pulse Resp BP Pulse Ox 36.7 C 86 15 127/78 92 11/10/22 12:58 11/10/22 12:58 11/10/22 12:58 11/10/22 12:58 11/10/22 12:58 Pain Score Most Recent Pain Score: Most Recent Pain Score Pain Level 0 11/10/22 12:58 Assessment Mental Status: Awake (Alert & Oriented to Patient Baseline) Airway and Respiratory Function: Patent airway with normal (patient baseline) respiratory exam Cardiovascular Function: Hemodynamically Stable Hydration Status: Adequately Hydrated Nausea & Vomiting: No Nausea or Vomiting Pain: Pain is tolerable per patient Peripheral Nerve Block: Patient did not receive a nerve block
--- NOTE | 2022-11-10 14:42 | PHA.REVIEW2 ---
Pharmacy Admission Review - Admission Clinical Review (Last Updated 11/10/22 @ 08:06 by Severo Red) Fracture of femoral neck, left, closed (Acute) No Known Allergies Allergy (Verified 06/22/21 13:08) Resuscitation Status DNR Height 5 ft 8 in Weight 104.326 kg - Renal Dosing Renal Dosing: BUN 16 mg/dL (7-18) 11/10/22 06:25 Creatinine 1.7 mg/dL (0.70-1.30) H 11/10/22 06:25 Medications needing adjustments: Reviewed List of meds needing interventions: eCrCl 43 ml/min - Anticoagulation Anticoagulation: Hgb 12.0 g/dL (13.5-17.5) L 11/10/22 06:25 Hct 36.2 % (40.0-50.0) L 11/10/22 06:25 Plt Count 146 10^3/uL (130-400) 11/10/22 06:25 INR 1.1 (0.9-1.1) 11/09/22 23:13 Creatinine 1.7 mg/dL (0.70-1.30) H 11/10/22 06:25 DVT Prophylaxis: N/A (went to OR today, will follow up tomorrow) - Opiate Usage Evaluate Pain Scale/Pains Meds: Reviewed Scheduled Bowel Reg ordered if on Opiates?: Yes (prn) - Relevant Labs Sodium 144 mmol/L (136-145) 11/10/22 06:25 Potassium 3.6 mmol/L (3.5-5.1) 11/10/22 06:25 Chloride 109 mmol/L (98-107) H 11/10/22 06:25 Magnesium 2.1 mg/dL (1.8-2.4) 11/10/22 06:25 Electrolytes, C-Reactive P, ESR: Reviewed - DM Control DM Control: Glucose 117 mg/dL (74-106) H 11/10/22 06:25 Finger Stick Blood Glucose 113 Finger Stick Blood Glucose 113 Finger Stick Blood Glucose 113 Finger Stick Blood Glucose 107 Finger Stick Blood Glucose 107 DM Control: Reviewed Insulin Dosing, Diabetic Medication: short acting insulin per SS - Cardiac Review Cardiac Review: Troponin I 51 ng/L (<or=60) 11/09/22 23:13 BP, HR, EF%: Reviewed - Qtc Review QTc: Reviewed If Elevated, List meds needing intervention: 487 on admission - IV to PO Switch IV Medications: Reviewed - Home Meds Home Med List reviewed: Intervened Relevent Home Meds Not ordered & why?: Not ordered: clopidogrel, atorvastatin, vit b, vit d, clopidogrel, omeprazole, sertraline, tramadol, triamterene-hctz; Called the [facility] to confirm lamotrigine dose/frequency but the director of corporate communications who I spoke with assured me that this med has not been on the patient's MAR in at least the past month if not longer, confirmed he does not have a seizure disorder and it was likely trialed as a mood stabilizer but patient did not tolerate - Current meds Current Medication Order Review: Reviewed (Spoke with MD about missing home meds -- ordered for tomorrow AM, will see if a lamotrigine level can be checked off of AM labs)
[2022-11-10] MEDS: hydrALAZINE 10 MG TAB PO (14:50)
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
[2022-11-10] MEDS: Insulin Aspart 300 UNITS/3 ML PEN SC ×2 (18:28→21:53)
[2022-11-10] MEDS: ceFAZolin 1 GM/50 ML BAG IVPB (20:12)
[2022-11-11 03:43] VITALS: BP 133/79; PULSE 56; RESP 16; TEMP 36.4; O2SAT 94
[2022-11-11] MEDS: Levothyroxine 88 MCG TAB PO (05:11)
[2022-11-11] MEDS: ceFAZolin 1 GM/50 ML BAG IVPB ×2 (05:11→12:03)
[2022-11-11 05:20] VITALS: O2SAT 84
[2022-11-11 05:24] VITALS: O2SAT 94
[2022-11-11 06:42] VITALS: BP 126/76; PULSE 50; RESP 16; TEMP 36.3; O2SAT 96
[2022-11-11] MEDS: Normal Saline 1,000 ML 100 ML IV (08:56)
[2022-11-11] MEDS: Acetaminophen 325 MG TAB PO (08:58)
[2022-11-11] MEDS: Clopidogrel 75 MG TAB PO (08:58)
[2022-11-11] MEDS: Sertraline 100 MG TAB PO (08:59)
[2022-11-11] MEDS: Lisinopril 20 MG TAB PO (08:59)
[2022-11-11] MEDS: Normal Saline Flush 10 ML SYR IVP (09:00)
--- NOTE | 2022-11-11 10:37 | PT.INTREAT ---
Date of service: 11/11/22 Time of Service: 08:35 PT Notes Visit Reasons: Left Femur Fracture Fall Inpatient Physical Therapy Treatment Note [facility] Date: 11/11/2022 PRECAUTIONS: Fall, Activity as tolerated, WBAT L SUBJECTIVE: Don is pleasant and agreeable to participating in PT. He reports that he is having some pain in his L hip. OBJECTIVE: PAIN: Patient c/o L hip pain with transfers and ther ex BED MOBILITY/TRANSFERS Supine-sit: Min A with HOB at 50 degrees Sit-stand: Mod A Stand-sit: Mod A Bed-Chair: Min A with stand-pivot transfer GAIT Assistive Device: Hemiwalker Weight bearing: WBAT L Assist: Min A - Mod A Distance: 1 step with R LE Deviation: Unsteady, minimal WB on L THEREX: Patient was instructed in a LE strengthening program, completed in a seated position, to include: ankle pumps, LAQ, hip flexion and hip abduction. Patient requires assist with all exercises on L for improved ROM due to weakness and pain. ASSESSMENT: Patient tolerated session with c/o increased L hip pain with ther ex and weight bearing. He demonstrates left-sided weakness, enhanced by recent injury/repair. PLAN: Patient to discharge back to [facility] later today, per provider. TREATMENT CODE/TIME: 25 minutes; 63367, 77874 (08:35)
--- NOTE | 2022-11-11 11:39 | PDOC.CMDIS ---
- If Service Date Differs Date of service: 11/11/22 Time of Service: 12:19 LACE Index Scoring Tool - Questions: Length of Stay (in days): 2 Acuity (Admit via E.D.?): Yes Comorbidities: Previous M.I., Diabetes w/o Complication, Dementia E.D. Visits: 1 - Answers: Total Score: 11 Risk of Readmission: High Risk Care Management Discharge Reason for Hospitalization: Left femur fracture fall Discharge Plan: Don will return to the [facility] via [facility]. Patient/Family Education Needs: CM left for DIL re: discharge planning. Services Needed at Discharge: Intermediate Facility ([facility]: return), Transportation ([facility])
[2022-11-11 11:40] VITALS: BP 113/71; PULSE 52; RESP 17; TEMP 36.2; O2SAT 94
[2022-11-11 11:59] VITALS: O2SAT 94
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
--- NOTE | 2022-11-11 13:51 | NUR.NOTE ---
Nursing Note: report called to Sonia at the [facility]
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
--- NOTE | 2022-11-12 13:56 | W.PM.PROGNOT ---
Date of Service Date of service: 11/11/22 Time of Service: 12:50 Assessment and Plan Assessment and plan (1) Fracture of femoral neck, left, closed: Status: Acute Assessment and plan: Epi is a 77-year-old who is status post percutaneous screw fixation of a nondisplaced left femoral neck fracture. Has been able to mobilize. His recovery will be limited by his underlying CVA and weakness and stiffness. At this point, he may discharge back to a group home facility. I will follow-up with him in 4 weeks. All the sutures are buried in the skin and do not need to be removed. The dressing should stay in place for 1 to 2 weeks. He is weightbearing as tolerated with assistive devices. Subjective Subjective Interval history since last seen: Epi reports to be doing well. He did have some pain initially after his surgery he is doing much better today. He is able to get up with physical therapy and mobilize to a chair. He reports mild pain about the left hip. He denies any other symptoms. No acute events overnight. Exam Narrative Exam Narrative: Sitting up in hospital chair. The left hip has no significant swelling. Dressing is clean dry and intact. He tolerates some gentle internal and external rotation without significant increase in pain. Objective Last Vital Signs Temp 36.2 C L 11/11/22 11:40 Pulse 52 L 11/11/22 11:40 Resp 17 11/11/22 11:40 BP 113/71 11/11/22 11:40 Pulse Ox 94 11/11/22 11:59 Time Spent with Patient Time Spent with Patient: <25 minutes Time was spent: preparing to see the patient(eg.review tests), referring, communicating with other health healthcare facility administrator and counseling the patient
[2022-11-12 15:46] LABS: Lamotrigine <0.2 mcg/mL (3.0-15.0)
== END 2022-11-11 14:25 | disposition skilled nursing facility (03) | DRG 481 ==
LOC: ER 11-10 07:06 → MS 11-10 09:21
PROVIDERS: Nurse Practitioner Acute Care; Student in an Organized Health Care Education/Training Program; Admitting Provider Family Medicine; Emergency Provider Emergency Medicine; PCP Physician Assistant; Visit Provider Family Medicine
PROC: 0QS734Z Reposition Left Upper Femur with Internal Fixation Device, Percutaneous Approach (ICD-10-PCS; CPT 27240; principal; 2022-11-10 12:30)
DX: S72.012A Unspecified intracapsular fracture of left femur, initial encounter for closed fracture (principal); I69.354 Hemiplegia and hemiparesis following cerebral infarction affecting left non-dominant side; W01.0XXA Fall on same level from slipping, tripping and stumbling without subsequent striking against object, initial encounter; I25.10 Atherosclerotic heart disease of native coronary artery without angina pectoris; N18.30 Chronic kidney disease, stage 3 unspecified; I12.9 Hypertensive chronic kidney disease with stage 1 through stage 4 chronic kidney disease, or unspecified chronic kidney disease; E03.9 Hypothyroidism, unspecified; E11.22 Type 2 diabetes mellitus with diabetic chronic kidney disease; I25.2 Old myocardial infarction; M10.9 Gout, unspecified; E78.5 Hyperlipidemia, unspecified; Z87.891 Personal history of nicotine dependence; D64.9 Anemia, unspecified; Z66 Do not resuscitate; G25.0 Essential tremor; I65.21 Occlusion and stenosis of right carotid artery; R09.02 Hypoxemia
CPT/HCPCS: 27240; 36415; 36416; 71275; 73552; 80053; 80175; 82962; 85027; 87081; 87635; 93005; 94640; 96365; 96366; 96375; 97110; 97163; 97530; 99223; 99285; 70450; 72170; 72192; 73501; 83735; 84484; 85025; 85610; 85730; 93010; 99222; 99239; J0690; J1100; J2270; J2405; J2704; J3480; J3490; J7620

== ENCOUNTER 2022-11-17 18:31 | Outpatient (REF) | payer MEDICARE, MEDICAID, SELFPAY ==
[2022-11-17 19:27] LABS: Abs Immature Grans 0.01 10^3/uL (0.0-0.06); Absolute Basophil Count 0.05 10^3/uL (0.0-0.2); Absolute Eosinophil Count 0.21 10^3/uL (0.0-0.7); Absolute Lymphocyte Count 1.03 10^3/uL (1.2-3.4); Absolute Monocyte Count 0.43 10^3/uL (0.1-0.8); Absolute Neutrophil Count 3.26 10^3/uL (1.2-6.7); Eosinophils % 4.2; HGB 10.5 g/dL (13.5-17.5); Immature Grans % 0.2; Lymphocytes % 20.6; MCV 100 fL (80-95); MPV 10.7 fL (8.0-11.0); Monocytes % 8.6; Neutrophils % 65.4; Platelet Count 194 10^3/uL (130-400); RDW 15.5 % (11.8-14.1); RDW-SD 50.2 fL; WBC 4.99 10^3/uL (4.4-10.8)
[2022-11-17 20:21] LABS: Iron 56 ug/dL (65-175); Total Iron Binding Capacity 136 ug/dL (250-450); Transferrin Sat 41 % (20-55)
[2022-11-17 20:43] LABS: Vitamin D 25 Total 17.5 ng/mL (30-100)
[2022-11-17 20:52] LABS: ALT 23 U/L (16-63); AST 27 U/L (15-37); Albumin 2.9 g/dL (3.4-5.0); Alkaline Phosphatase 91 U/L (46-116); Anion Gap 6.2 mmol/L (3-11); BUN 18 mg/dL (7-18); Bilirubin, Total 0.5 mg/dL (0.2-1.0); CO2 29.8 mmol/L (21.0-32.0); CREATININE 1.4 mg/dL (0.70-1.30); Calcium 8.7 mg/dL (8.5-10.1); Chloride 107 mmol/L (98-107); Estimated GFR 52.09 (mL/min/1.73m2); Ferritin 639 ng/mL (26-388); Glucose 104 mg/dL (74-106); Magnesium 1.7 mg/dL (1.8-2.4); Sodium 143 mmol/L (136-145); TSH (W/Ref FT4) 5.89 uIU/mL (0.36-3.74); Total Protein 5.7 g/dL (6.4-8.2)
[2022-11-17 21:41] LABS: Folate 15.5 ng/mL (8.6-20.0); Vitamin B12 849 pg/mL (193-986)
[2022-11-17 22:08] LABS: FREE T4 0.99 ng/dL (0.76-1.46); NT-proBNP 7253 pg/mL (<300)
== END 2022-11-17 18:32 | disposition home or self-care (01) ==
LOC: LBN 18:31
PROVIDERS: PCP Physician Assistant; Visit Provider Nurse Practitioner Gerontology
DX: D51.3 Other dietary vitamin B12 deficiency anemia (principal); Z02.89 Encounter for other administrative examinations; E55.9 Vitamin D deficiency, unspecified; J44.9 Chronic obstructive pulmonary disease, unspecified; T81.40XA Infection following a procedure, unspecified, initial encounter
CPT/HCPCS: 80053; 82306; 82607; 82728; 82746; 83036; 83540; 83550; 83735; 83880; 84439; 84443; 85025

== ENCOUNTER 2022-11-22 18:18 | Outpatient (REF) | payer MEDICARE, MEDICAID, SELFPAY ==
[2022-11-22 19:08] LABS: NT-proBNP 7795 pg/mL (<300)
[2022-11-23 09:33] LABS: ALT 20 U/L (16-63); AST 21 U/L (15-37); Albumin 3.4 g/dL (3.4-5.0); Alkaline Phosphatase 107 U/L (46-116); Anion Gap 8.8 mmol/L (3-11); BUN 18 mg/dL (7-18); Bilirubin, Total 0.5 mg/dL (0.2-1.0); CO2 31.2 mmol/L (21.0-32.0); CREATININE 1.6 mg/dL (0.70-1.30); Chloride 103 mmol/L (98-107); Estimated GFR 44.38 (mL/min/1.73m2); Glucose 97 mg/dL (74-106); Potassium 3.5 mmol/L (3.5-5.1); Sodium 143 mmol/L (136-145); Total Protein 6.5 g/dL (6.4-8.2)
== END 2022-11-22 18:19 | disposition home or self-care (01) ==
LOC: LBN 18:18
PROVIDERS: PCP Physician Assistant; Visit Provider Nurse Practitioner Gerontology
DX: R68.89 Other general symptoms and signs (principal); D64.9 Anemia, unspecified; N18.30 Chronic kidney disease, stage 3 unspecified; E11.9 Type 2 diabetes mellitus without complications; R06.2 Wheezing
CPT/HCPCS: 80053; 83880

== ENCOUNTER 2022-11-26 22:42 | Emergency (ER) | payer MEDICARE, MEDICAID, SELFPAY ==
[2022-11-26 22:39] VITALS: BP 163/90; PULSE 56; RESP 16; TEMP 36.4; O2SAT 98
[2022-11-26 22:41] VITALS: BP 163/90; PULSE 61
[2022-11-26 22:46] VITALS: BP 156/87; PULSE 59
--- NOTE | 2022-11-26 23:00 | DI.CT_ITS ---
Exam(s) CT THORACIC LUMBAR SPINE WO EXAM: CT THORACIC LUMBAR SPINE WO CLINICAL HISTORY: s/p fall out of wheelchair,tender T/L spine,r/o fx. TECHNIQUE: Imaging Protocol: Axial computed tomography images with coronal and sagittal reformatted images were created and reviewed. CONTRAST MATERIAL: Intravenous: Omnipaque 350 Contrast volume:structured data in ml Contrast route:I V - Oral: yes / no COMPARISON: CT CT CHEST/ABD/PEL WO from 11/26/2022 FINDINGS: THORACIC SPINAL COLUMN: There is no evidence of acute fracture or listhesis nor acute compromise of t he spinal canal. No facet malalignment. LUMBOSACRAL SPINAL COLUMN: Multilevel advanced degenerative disc disease. Degenerative anterolisthes is L5 upon S1. No acute fractures evident. Mild loss of superior endplate height at L1 does not jacey ear acute. Facet arthropathy. No facet malalignment. IMPRESSION: No acute fractures of the thoracic and lumbosacral spinal columns. No obvious acute compromise of th e spinal canal. If clinically indicated follow-up MRI can be performed. RADIATION DOSE DELIVERED: Total DLP DATA REPOSITORY: All CT scans at this facility are submitted to the National Radiology Data Registry (NRDR) Dose Index Registry (DIR) with the [employer] (ACR). RADIATION OPTIMIZATION: All CT scans at this facility use at least one of these dose optimization te chniques: automated exposure control; mA and/or kV adjustment per patient size (includes targeted exa ms where dose is matched to clinical indication); or iterative reconstruction.
--- NOTE | 2022-11-26 23:00 | DI.CT_ITS ---
Exam(s) CT CHEST/ABD/PEL WO EXAM: CT CHEST/ABD/PEL WO CLINICAL HISTORY: s/p fall out of wheelchair, hit L ribs. TECHNIQUE: Imaging Protocol: Axial computed tomography images with coronal and sagittal reformatted images were created and reviewed CONTRAST MATERIAL: Intravenous: none Oral: None COMPARISON: CT CT CHEST PE CTA from 11/10/2022 FINDINGS: CHEST: LUNGS: Mild increased markings in the posterior basal segment of the left lower lobe, more so than on the previous study of 11/10/2022. No other focal pulmonary findings. No obvious pleural effusions. No pneumothorax. No findings in the trachea and mainstem bronchi. MEDIASTINUM: No sternal fracture. No mediastinal hematoma. No mediastinal nor obvious hilar adenopa thy. CARDIAC: Mild cardiomegaly. No pericardial effusion. Caliber thoracic aorta is within normal limits . Mild coronary artery calcification in the left coronary artery.Caliber of the thoracic aorta is wi thin normal limits. OSSEOUS: Multiple healed left-sided rib fractures are again noted. No acute rib fractures evident.No osseous lesions.. ABDOMEN: There is no ascites in the upper abdomen.. No evidence of mesenteric nor bowel wall hematoma. No branden wel obstruction or free air. LIVER: There are no obvious focal hepatic lesions evident of this noninfused study. No obvious liver laceration. Benign cyst in the right hepatic lobe is unchanged. GALLBLADDER/BILIARY: Multiple gallstones are again noted in the gallbladder lumen. No evidence of ob vious acute cholecystitis. CBD is not dilated. PANCREAS: No evidence of obvious pancreatic mass nor dilatation of the pancreatic duct. SPLEEN: Spleen size normal. No evidence of splenic laceration. ADRENALS: There are no significant adrenal masses. KIDNEYS: Right kidney unremarkable. There is in addition defect on the posterior cortex of the oppos ite-left kidney measuring 1.4 x 1.2 cm. . Difficult to determine if this is sister solid without IV contrast. Should undergo ultrasound exam. There are no calculi nor hydronephrosis. No hydroureter . No obvious abnormality in the urinary bladder ABDOMINAL AORTA: Abdominal aorta is not enlarged. LYMPH NODES: There is no retroperitoneal nor para-aortic adenopathy. ABDOMINAL WALL/GI: There is a left inguinal hernia. Undescended testicle on the left side noted. No evidence of bowel obstruction. However, there is a small amount of free fluid in the lower right pelvis adjacent to the right side of the rectosigmoid evident in this male patient. PELVIS: LYMPH NODES: There is no intrapelvic nor inguinal adenopathy. GI: No evidence of appendicitis.No evidence of sigmoid diverticulitis.Redundant sigmoid but no signif icant diverticular disease evident. URINARY BLADDER: Mildly enlarged prostate. Seminal vesicles unremarkable. Urinary bladder not diste nded. REPRODUCTIVE: Prostate not enlarged and seminal vesicles unremarkable. OSSEOUS: 3 screws in the left hip. No significant osseous lesions. Degenerative anterolisthesis L5 upon S1. No acute fractures evident. Slight loss of height of L1 superior endplate and a few lower thoracic vertebral bodies but no acute fractures identified. No significant osseous lesions. IMPRESSION: 1. Mild increased markings in left lower lobe posterior basal segment. No large infiltrates. No ple ural effusions. 2. Multiple healed left-sided rib fractures. Also nonacute appearing superior endplate L1 fracture. No acute fractures evident 3. Cholelithiasis. No obvious acute cholecystitis. 4. There is a 1.4 x 1.5 cm addition defect in the posterior cortex of the left kidney, difficult to assess without IV contrast. Either cyst or solid. Recommend follow-up ultrasound. No other renal f indings. 5. Undescended left testicle. 6. Small amount of free fluid in the lower right pelvis with no obvious culprit source in this male patient. RADIATION DOSE DELIVERED: 1155.21 mGy.cm Total DLP DATA REPOSITORY: All CT scans at this facility are submitted to the National Radiology Data Registry (NRDR) Dose Index Registry (DIR) with the [employer] (ACR). RADIATION OPTIMIZATION: All CT scans at this facility use at least one of these dose optimization te chniques: automated exposure control; mA and/or kV adjustment per patient size (includes targeted exa ms where dose is matched to clinical indication); or iterative reconstruction.
[2022-11-26 23:01] VITALS: BP 123/74; PULSE 68
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
--- NOTE | 2022-11-27 00:48 | DI.VRAD_ITS ---
PROCEDURE INFORMATION: Exam: CT Chest Without Contrast; Diagnostic Exam date and time: 11/26/2022 11:16 PM Age: 77 years old Clinical indication: Injury or trauma; Fall; Generalized; Blunt trauma (contusions or hematomas); Prior surgery; Surgery date: 6+ months; Surgery type: Left hip; Additional info: S/P fall out of wheelchair, tender t/l spine, R/O FX TECHNIQUE: Imaging protocol: Diagnostic computed tomography of the chest without contrast. 3D rendering (Not supervised by radiologist): MIP and/or 3D reconstructed images were created by the technologist. Radiation optimization: All CT scans at this facility use at least one of these dose optimization techniques: automated exposure control; mA and/or kV adjustment per patient size (includes targeted exams where dose is matched to clinical indication); or iterative reconstruction. COMPARISON: CT CHEST PE CTA 11/10/2022 12:08 AM FINDINGS: Lungs: Hyperinflation. Dependent subsegmental atelectasis. No consolidation. Pleural spaces: No pneumothorax. Trace bilateral pleural effusions. Heart: Cardiomegaly. Coronary artery calcifications. Diminished attenuation of cardiac chambers in comparison to myocardium which can be seen with anemia. Correlate clinically. No pericardial effusion or pneumopericardium. Mediastinal space: Normal esophagus. No pneumomediastinum. Lymph nodes: No adenopathy. Vasculature: Ascending aorta dilated to 3.8 cm. Bones/joints: Multiple subacute or chronic left rib fractures.The spine demonstrates moderate degenerative changes at multiple levels. Soft tissues: Unremarkable. IMPRESSION: 1. Trace bilateral pleural effusions. 2. No acute fracture demonstrated. 3. Several non emergent findings. PROCEDURE INFORMATION: Exam: CT Abdomen And Pelvis Without Contrast Exam date and time: 11/26/2022 11:16 PM Age: 77 years old Clinical indication: Injury or trauma; Fall; Generalized; Blunt trauma (contusions or hematomas); Prior surgery; Surgery date: 6+ months; Surgery type: Left hip; Additional info: S/P fall out of wheelchair, tender t/l spine, R/O FX TECHNIQUE: Imaging protocol: Computed tomography of the abdomen and pelvis without contrast. 3D rendering (Not supervised by radiologist): MIP and/or 3D reconstructed images were created by the technologist. Radiation optimization: All CT scans at this facility use at least one of these dose optimization techniques: automated exposure control; mA and/or kV adjustment per patient size (includes targeted exams where dose is matched to clinical indication); or iterative reconstruction. COMPARISON: CT [facility] WO 11/10/2022 12:04 AM x-rays of lumbosacral spine from September 02, 2022 FINDINGS: Liver: There is diffuse decrease in hepatic parenchymal density, consistent with mild fatty infiltration. 15 mm simple cyst left lobe. No mass. Gallbladder and bile ducts: Multiple gallstones. Pancreas: Fatty infiltration of the pancreas. No ductal dilatation. Spleen: Spleen intact. No splenomegaly. Adrenal glands: Normal adrenal glands. Kidneys and ureters: No hydronephrosis. Exophytic simple cyst, interpolar left kidney measuring 10 mm. No hydronephrosis. Mild perinephric fat stranding. Stomach and bowel: Unremarkable. No obstruction. No mucosal thickening. Appendix: No evidence of appendicitis. Intraperitoneal space: No free intraperitoneal gas or ascites. Vasculature: No abdominal aortic aneurysm. Atherosclerosis. Lymph nodes: Unremarkable. No enlarged lymph nodes. Urinary bladder: Unremarkable as visualized. Reproductive: Retracted or undescended testicle. Bones/joints: Age-indeterminate invagination through superior endplate of L1 vertebral body. Appearance is similar to that demonstrated on plain film study from August. The spine demonstrates moderate degenerative changes at multiple levels. There is at least partial ankylosis of L2 with L3. 11 mm anterior subluxation of L5 on S1. Bilateral L5 pars defects. Prior surgical fixation of left hip fracture. Soft tissues: Unremarkable. IMPRESSION: 1. Age-indeterminate invagination through superior endplate of L1, favored to be chronic. Correlate clinically as to acuity. 2. Perinephric stranding of fat which could have several possible etiologies including scarring, third spacing of fluid, inflammatory process or infection. 3. Gallstones. 4. Undescended or retracted left testicle at time of scan. 5. Grade 2 spondylolisthesis of L5 on S1. Next para several additional non emergent findings. Dictated and Authenticated by: Korey Coleman MD. Ordering:CONNER Veliz MD
[2022-11-27 01:04] VITALS: BP 145/86; PULSE 65
[2022-11-27 01:16] VITALS: BP 151/82; PULSE 61
--- NOTE | 2022-11-27 01:17 | DI.VRAD_ITS ---
PROCEDURE INFORMATION: Exam: CT Thoracic Spine Without Contrast Exam date and time: 11/26/2022 11:16 PM Age: 77 years old Clinical indication: Injury or trauma; Fall; Blunt trauma (contusions or hematomas); Additional info: S/P fall out of wheelchair, tender t/l spine, R/O FX TECHNIQUE: Imaging protocol: Computed tomography of the thoracic spine without contrast. Radiation optimization: All CT scans at this facility use at least one of these dose optimization techniques: automated exposure control; mA and/or kV adjustment per patient size (includes targeted exams where dose is matched to clinical indication); or iterative reconstruction. COMPARISON: CT CHEST PE CTA 11/10/2022 12:08 AM FINDINGS: Bones/joints: No acute fracture. Normal alignment.The spine demonstrates moderate degenerative changes at multiple levels. Straightening of kyphosis. Subtle compound thoracolumbar scoliosis with upper convexity directed to the right. No significant disc protrusion. No severe spinal canal stenosis. Soft tissues: Unremarkable. IMPRESSION: 1. No acute fracture or subluxation. 2. Multilevel degenerative changes. 3. Straightening of kyphosis. 4. Scoliosis. PROCEDURE INFORMATION: Exam: CT Lumbar Spine Without Contrast Exam date and time: 11/26/2022 11:16 PM Age: 77 years old Clinical indication: Injury or trauma; Fall; Blunt trauma (contusions or hematomas); Additional info: S/P fall out of wheelchair, tender t/l spine, R/O FX TECHNIQUE: Imaging protocol: Computed tomography of the lumbar spine without contrast. Radiation optimization: All CT scans at this facility use at least one of these dose optimization techniques: automated exposure control; mA and/or kV adjustment per patient size (includes targeted exams where dose is matched to clinical indication); or iterative reconstruction. COMPARISON: CR XR LUMBAR SPINE COMPLETE 09/02/2022 10:29 AM FINDINGS: Bones/joints: Age-indeterminate invagination through superior endplate of L1 vertebra. The spine demonstrates moderate degenerative changes at multiple levels. Grade 2 spondylolisthesis of L5 with respect S1. At least partial ankylosis of L2 with L3. Straightening of lordosis. No significant disc protrusion. No severe spinal canal stenosis. Soft tissues: Unremarkable. IMPRESSION: 1. Age-indeterminate invagination through superior endplate of L1. Correlate clinically as to acuity. 2. Grade 2 spondylolisthesis of L5 with respect to S1. 3. Multilevel degenerative changes. 4. Straightening of lordosis. Dictated and Authenticated by: Korey Coleman MD. Ordering:CONNER Veliz MD
[2022-11-27 01:31] VITALS: BP 149/85; PULSE 62
[2022-11-27 01:45] VITALS: TEMP 36.2
[2022-11-27 01:54] VITALS: BP 149/85; PULSE 62; RESP 16; TEMP 36.2; O2SAT 98
== END 2022-11-27 01:53 | disposition home or self-care (01) ==
PROVIDERS: Emergency Provider Physician Assistant; PCP Physician Assistant
DX: S20.212A Contusion of left front wall of thorax, initial encounter (principal); I12.9 Hypertensive chronic kidney disease with stage 1 through stage 4 chronic kidney disease, or unspecified chronic kidney disease; E11.22 Type 2 diabetes mellitus with diabetic chronic kidney disease; N18.30 Chronic kidney disease, stage 3 unspecified; I25.10 Atherosclerotic heart disease of native coronary artery without angina pectoris; E03.9 Hypothyroidism, unspecified; Z86.73 Personal history of transient ischemic attack (TIA), and cerebral infarction without residual deficits; Z87.891 Personal history of nicotine dependence; W05.0XXA Fall from non-moving wheelchair, initial encounter; W22.8XXA Striking against or struck by other objects, initial encounter; Y92.129 Unspecified place in nursing home as the place of occurrence of the external cause
CPT/HCPCS: 71250; 99284; 72128; 72131; 74176; 99282

== ENCOUNTER 2022-11-29 21:23 | Outpatient (REF) | payer MEDICARE, MEDICAID, SELFPAY ==
[2022-11-29 21:38] LABS: Abs Immature Grans 0.02 10^3/uL (0.0-0.06); Absolute Basophil Count 0.04 10^3/uL (0.0-0.2); Absolute Eosinophil Count 0.29 10^3/uL (0.0-0.7); Absolute Lymphocyte Count 1.38 10^3/uL (1.2-3.4); Absolute Neutrophil Count 3.58 10^3/uL (1.2-6.7); Basophils % 0.7; HCT 32.9 % (40.0-50.0); HGB 11.7 g/dL (13.5-17.5); Immature Grans % 0.3; Lymphocytes % 23.8; MCH 36.1 pg (27.0-33.0); MCHC 35.6 % (32.0-36.0); MCV 102 fL (80-95); MPV 11.4 fL (8.0-11.0); Monocytes % 8.6; Neutrophils % 61.6; Platelet Count 181 10^3/uL (130-400); RBC 3.24 10^6/uL (4.36-5.78); RDW 15.2 % (11.8-14.1); RDW-SD 50.5 fL; WBC 5.81 10^3/uL (4.4-10.8)
[2022-11-29 22:09] LABS: ALT 11 U/L (16-63); AST 13 U/L (15-37); Albumin 3.2 g/dL (3.4-5.0); Alkaline Phosphatase 95 U/L (46-116); Anion Gap 6.1 mmol/L (3-11); BUN 17 mg/dL (7-18); Bilirubin, Total 0.6 mg/dL (0.2-1.0); CO2 32.9 mmol/L (21.0-32.0); CREATININE 1.6 mg/dL (0.70-1.30); Calcium 8.8 mg/dL (8.5-10.1); Chloride 105 mmol/L (98-107); Estimated GFR 44.38 (mL/min/1.73m2); Glucose 128 mg/dL (74-106); Potassium 3.1 mmol/L (3.5-5.1); Sodium 144 mmol/L (136-145); Total Protein 6.2 g/dL (6.4-8.2)
[2022-11-30 05:00] LABS: NT-proBNP 4807 pg/mL (<300)
== END 2022-11-29 21:24 | disposition home or self-care (01) ==
LOC: LBN 21:23
PROVIDERS: PCP Physician Assistant; Visit Provider Nurse Practitioner Gerontology
DX: J44.9 Chronic obstructive pulmonary disease, unspecified (principal); R68.89 Other general symptoms and signs; M62.81 Muscle weakness (generalized); E78.5 Hyperlipidemia, unspecified
CPT/HCPCS: 80053; 83880; 85025

== ENCOUNTER 2022-12-07 18:23 | Outpatient (REF) | payer MEDICARE, MEDICAID, SELFPAY ==
[2022-12-07 19:48] LABS: ALT 10 U/L (16-63); AST 15 U/L (15-37); Alkaline Phosphatase 94 U/L (46-116); Anion Gap 4.9 mmol/L (3-11); BUN 16 mg/dL (7-18); Bilirubin, Total 0.3 mg/dL (0.2-1.0); CO2 33.1 mmol/L (21.0-32.0); CREATININE 1.5 mg/dL (0.70-1.30); Calcium 8.6 mg/dL (8.5-10.1); Chloride 104 mmol/L (98-107); Estimated GFR 47.95 (mL/min/1.73m2); Glucose 104 mg/dL (74-106); NT-proBNP 3201 pg/mL (<300); Potassium 3.4 mmol/L (3.5-5.1); Sodium 142 mmol/L (136-145); Total Protein 5.8 g/dL (6.4-8.2)
== END 2022-12-07 18:24 | disposition home or self-care (01) ==
LOC: LBN 18:23
PROVIDERS: PCP Physician Assistant; Visit Provider Nurse Practitioner Gerontology
DX: I63.89 Other cerebral infarction; N18.30 Chronic kidney disease, stage 3 unspecified; E78.5 Hyperlipidemia, unspecified; E03.9 Hypothyroidism, unspecified; E11.9 Type 2 diabetes mellitus without complications; I10 Essential (primary) hypertension; R06.89 Other abnormalities of breathing
CPT/HCPCS: 80053; 83880

== ENCOUNTER 2022-12-13 11:21 | Outpatient (CLI) | payer MEDICARE, MEDICAID, SELFPAY ==
--- NOTE | 2022-12-13 11:11 | DI.RAD_ITS ---
Exam(s) XR HIP LT AP LAT ONLY EXAM: XR HIP LT AP LAT ONLY CLINICAL HISTORY: s/p screw fixation. TECHNIQUE: 2D digital imaging was performed of the left hip. Two views were obtained. AP and later al views were obtained. COMPARISON: XA XR HIP LT IN OR from 11/10/2022 CR,XR XR FEMUR LT from 11/10/2022 CR,XR XR PELVIS AP from 11/10/2022 FINDINGS: BONES: There again seen 3 partially threaded screws transfixing the subcapital fracture of the left f emur. No change in alignment the orthopedic hardware fracture components is seen. No new fractures identified. No bony destructive lesion is seen. JOINTS: No dislocation present. SOFT TISSUE: Normal. IMPRESSION: Stable left hip. DATA REPOSITORY: RADIATION DOSE DELIVERED:
== END 2022-12-13 11:22 | disposition home or self-care (01) ==
LOC: DIORS 11:22
PROVIDERS: PCP Physician Assistant; Referring Provider Physician Assistant; Visit Provider Student in an Organized Health Care Education/Training Program
DX: S72.002D Fracture of unspecified part of neck of left femur, subsequent encounter for closed fracture with routine healing (principal); X58.XXXD Exposure to other specified factors, subsequent encounter
CPT/HCPCS: 73502

== ENCOUNTER 2022-12-14 22:22 | Outpatient (REF) | payer MEDICARE, MEDICAID, SELFPAY ==
[2022-12-14 21:47] LABS: ALT 9 U/L (16-63); AST 13 U/L (15-37); Albumin 3.2 g/dL (3.4-5.0); Alkaline Phosphatase 91 U/L (46-116); Anion Gap 3.8 mmol/L (3-11); BUN 17 mg/dL (7-18); Bilirubin, Total 0.3 mg/dL (0.2-1.0); CO2 34.2 mmol/L (21.0-32.0); CREATININE 1.6 mg/dL (0.70-1.30); Calcium 8.7 mg/dL (8.5-10.1); Chloride 105 mmol/L (98-107); Estimated GFR 44.38 (mL/min/1.73m2); Glucose 162 mg/dL (74-106); NT-proBNP 3440 pg/mL (<300); Potassium 3.4 mmol/L (3.5-5.1); Sodium 143 mmol/L (136-145)
== END 2022-12-14 22:23 | disposition home or self-care (01) ==
LOC: LBN 22:22
PROVIDERS: PCP Physician Assistant; Visit Provider Nurse Practitioner Gerontology
DX: I50.20 Unspecified systolic (congestive) heart failure (principal); E78.5 Hyperlipidemia, unspecified; N18.30 Chronic kidney disease, stage 3 unspecified; E03.9 Hypothyroidism, unspecified; J44.9 Chronic obstructive pulmonary disease, unspecified
CPT/HCPCS: 80053; 83880

== ENCOUNTER 2022-12-20 19:07 | Outpatient (REF) | payer MEDICARE, MEDICAID, SELFPAY ==
[2022-12-20 20:17] LABS: ALT 10 U/L (16-63); AST 11 U/L (15-37); Albumin 3.2 g/dL (3.4-5.0); Alkaline Phosphatase 84 U/L (46-116); Anion Gap 4.6 mmol/L (3-11); BUN 20 mg/dL (7-18); Bilirubin, Total 0.3 mg/dL (0.2-1.0); CO2 35.4 mmol/L (21.0-32.0); CREATININE 1.7 mg/dL (0.70-1.30); Calcium 8.8 mg/dL (8.5-10.1); Chloride 101 mmol/L (98-107); Estimated GFR 41.26 (mL/min/1.73m2); Glucose 128 mg/dL (74-106); NT-proBNP 1791 pg/mL (<300); Potassium 3.2 mmol/L (3.5-5.1); Sodium 141 mmol/L (136-145)
== END 2022-12-20 19:08 | disposition home or self-care (01) ==
LOC: LBN 19:07
PROVIDERS: PCP Physician Assistant; Visit Provider Nurse Practitioner Gerontology
DX: R68.89 Other general symptoms and signs (principal); I50.20 Unspecified systolic (congestive) heart failure; E03.9 Hypothyroidism, unspecified; E78.5 Hyperlipidemia, unspecified; I10 Essential (primary) hypertension
CPT/HCPCS: 80053; 83880

== ENCOUNTER 2022-12-30 16:28 | Outpatient (REF) | payer MEDICARE, MEDICAID, SELFPAY ==
[2022-12-30 14:26] LABS: Abs Immature Grans 0.01 10^3/uL (0.0-0.06); Absolute Basophil Count 0.04 10^3/uL (0.0-0.2); Absolute Eosinophil Count 0.23 10^3/uL (0.0-0.7); Absolute Lymphocyte Count 1.57 10^3/uL (1.2-3.4); Absolute Monocyte Count 0.47 10^3/uL (0.1-0.8); Absolute Neutrophil Count 3.15 10^3/uL (1.2-6.7); Basophils % 0.7; Eosinophils % 4.2; HCT 33.2 % (40.0-50.0); HGB 11.5 g/dL (13.5-17.5); Immature Grans % 0.2; Lymphocytes % 28.7; MCH 34.2 pg (27.0-33.0); MCHC 34.6 % (32.0-36.0); MCV 99 fL (80-95); MPV 11.2 fL (8.0-11.0); Monocytes % 8.6; Neutrophils % 57.6; Platelet Count 156 10^3/uL (130-400); RBC 3.36 10^6/uL (4.36-5.78); RDW 13.5 % (11.8-14.1); WBC 5.47 10^3/uL (4.4-10.8)
[2022-12-30 15:04] LABS: ALT 10 U/L (16-63); AST 10 U/L (15-37); Albumin 3.1 g/dL (3.4-5.0); Alkaline Phosphatase 81 U/L (46-116); Anion Gap 5.2 mmol/L (3-11); BUN 15 mg/dL (7-18); Bilirubin, Total 0.4 mg/dL (0.2-1.0); CO2 34.8 mmol/L (21.0-32.0); CREATININE 1.5 mg/dL (0.70-1.30); Calcium 8.9 mg/dL (8.5-10.1); Chloride 103 mmol/L (98-107); Estimated GFR 47.95 (mL/min/1.73m2); Glucose 100 mg/dL (74-106); NT-proBNP 1593 pg/mL (<300); Potassium 3.3 mmol/L (3.5-5.1); Sodium 143 mmol/L (136-145); Total Protein 5.9 g/dL (6.4-8.2)
== END 2022-12-30 16:29 | disposition home or self-care (01) ==
LOC: LBN 16:28
PROVIDERS: PCP Physician Assistant; Visit Provider Nurse Practitioner Gerontology
DX: N18.32 Chronic kidney disease, stage 3b (principal); E11.9 Type 2 diabetes mellitus without complications; I10 Essential (primary) hypertension; I50.20 Unspecified systolic (congestive) heart failure
CPT/HCPCS: 80053; 83880; 85025

== ENCOUNTER 2023-01-18 16:06 | Outpatient (REF) | payer MEDICARE, MEDICAID, SELFPAY ==
[2023-01-18 16:46] LABS: Abs Immature Grans 0.01 10^3/uL (0.0-0.06); Absolute Basophil Count 0.06 10^3/uL (0.0-0.2); Absolute Lymphocyte Count 1.55 10^3/uL (1.2-3.4); Absolute Monocyte Count 0.38 10^3/uL (0.1-0.8); Absolute Neutrophil Count 2.96 10^3/uL (1.2-6.7); Basophils % 1.2; Eosinophils % 3.9; HCT 35.5 % (40.0-50.0); HGB 12.6 g/dL (13.5-17.5); Immature Grans % 0.2; MCH 34.3 pg (27.0-33.0); MCHC 35.5 % (32.0-36.0); MCV 97 fL (80-95); MPV 11.4 fL (8.0-11.0); Monocytes % 7.4; Neutrophils % 57.3; Platelet Count 168 10^3/uL (130-400); RBC 3.67 10^6/uL (4.36-5.78); RDW 14.3 % (11.8-14.1); RDW-SD 44.5 fL; WBC 5.16 10^3/uL (4.4-10.8)
[2023-01-18 17:21] LABS: ALT 53 U/L (16-63); AST 43 U/L (15-37); Albumin 3.4 g/dL (3.4-5.0); Alkaline Phosphatase 130 U/L (46-116); Anion Gap 5.9 mmol/L (3-11); BUN 18 mg/dL (7-18); Bilirubin, Total 0.5 mg/dL (0.2-1.0); CO2 35.1 mmol/L (21.0-32.0); CREATININE 1.7 mg/dL (0.70-1.30); Calcium 9.1 mg/dL (8.5-10.1); Chloride 103 mmol/L (98-107); Estimated GFR 41.26 (mL/min/1.73m2); Glucose 108 mg/dL (74-106); NT-proBNP 2475 pg/mL (<300); Potassium 3.5 mmol/L (3.5-5.1); Sodium 144 mmol/L (136-145); TSH (W/Ref FT4) 2.04 uIU/mL (0.36-3.74); Total Protein 6.2 g/dL (6.4-8.2)
[2023-01-18 18:04] LABS: Vitamin B12 520 pg/mL (193-986)
[2023-01-18 19:07] LABS: Vitamin D 25 Total 31.5 ng/mL (30-100)
== END 2023-01-18 16:07 | disposition home or self-care (01) ==
LOC: LBN 16:06
PROVIDERS: PCP Physician Assistant; Visit Provider Nurse Practitioner Gerontology
DX: E03.9 Hypothyroidism, unspecified (principal); I10 Essential (primary) hypertension; E78.5 Hyperlipidemia, unspecified; E11.9 Type 2 diabetes mellitus without complications; E53.8 Deficiency of other specified B group vitamins; N18.30 Chronic kidney disease, stage 3 unspecified; E55.9 Vitamin D deficiency, unspecified; R79.89 Other specified abnormal findings of blood chemistry; R06.89 Other abnormalities of breathing
CPT/HCPCS: 80053; 82306; 82607; 83880; 84443; 85025

== ENCOUNTER → 2023-01-31 13:52 | Outpatient (BNVA) | payer MEDICARE, MEDICAID, SELFPAY | PROVIDERS: PCP Physician Assistant; Referring Provider Physician Assistant | DX: S72.002D Fracture of unspecified part of neck of left femur, subsequent encounter for closed fracture with routine healing (principal); X58.XXXD Exposure to other specified factors, subsequent encounter ==

== ENCOUNTER 2023-02-16 17:04 | Outpatient (REF) | payer MEDICARE, MEDICAID, SELFPAY ==
[2023-02-16 17:27] LABS: Abs Immature Grans 0.01 10^3/uL (0.0-0.06); Absolute Basophil Count 0.04 10^3/uL (0.0-0.2); Absolute Eosinophil Count 0.27 10^3/uL (0.0-0.7); Absolute Monocyte Count 0.47 10^3/uL (0.1-0.8); Absolute Neutrophil Count 3.54 10^3/uL (1.2-6.7); Basophils % 0.7; Eosinophils % 4.9; HCT 37.5 % (40.0-50.0); HGB 13.4 g/dL (13.5-17.5); Immature Grans % 0.2; Lymphocytes % 21.7; MCH 34.1 pg (27.0-33.0); MCHC 35.7 % (32.0-36.0); MCV 95 fL (80-95); MPV 11.1 fL (8.0-11.0); Monocytes % 8.5; Platelet Count 153 10^3/uL (130-400); RBC 3.93 10^6/uL (4.36-5.78); RDW 13.6 % (11.8-14.1); RDW-SD 43.2 fL; WBC 5.53 10^3/uL (4.4-10.8)
[2023-02-16 17:53] LABS: ALT 17 U/L (16-63); AST 15 U/L (15-37); Albumin 3.7 g/dL (3.4-5.0); Alkaline Phosphatase 86 U/L (46-116); Anion Gap 4.4 mmol/L (3-11); BUN 20 mg/dL (7-18); Bilirubin, Total 0.4 mg/dL (0.2-1.0); CO2 34.6 mmol/L (21.0-32.0); CREATININE 1.8 mg/dL (0.70-1.30); Chloride 101 mmol/L (98-107); Estimated GFR 38.53 (mL/min/1.73m2); Glucose 166 mg/dL (74-106); NT-proBNP 1584 pg/mL (<300); Sodium 140 mmol/L (136-145); Total Protein 6.8 g/dL (6.4-8.2)
== END 2023-02-16 17:05 | disposition home or self-care (01) ==
LOC: LBN 17:04
PROVIDERS: PCP Physician Assistant; Visit Provider Nurse Practitioner Gerontology
DX: R68.89 Other general symptoms and signs (principal); R06.89 Other abnormalities of breathing; R79.89 Other specified abnormal findings of blood chemistry; I10 Essential (primary) hypertension; N18.30 Chronic kidney disease, stage 3 unspecified; E11.9 Type 2 diabetes mellitus without complications
CPT/HCPCS: 80053; 83880; 85025

== ENCOUNTER 2023-07-12 20:15 | Outpatient (REF) | payer MEDICARE, MEDICAID, SELFPAY ==
[2023-07-12 19:02] LABS: ALT 36 U/L (16-63); AST 18 U/L (15-37); Albumin 3.5 g/dL (3.4-5.0); Alkaline Phosphatase 136 U/L (46-116); Anion Gap 8.2 mmol/L (3-11); BUN 14 mg/dL (7-18); Bilirubin, Total 0.7 mg/dL (0.2-1.0); CO2 30.8 mmol/L (21.0-32.0); Chloride 104 mmol/L (98-107); Glucose 108 mg/dL (74-106); Potassium 3.3 mmol/L (3.5-5.1); Sodium 143 mmol/L (136-145); Total Protein 6.6 g/dL (6.4-8.2)
[2023-07-12 19:08] LABS: CREATININE 1.7 mg/dL (0.70-1.30); Estimated GFR 41.01 (mL/min/1.73m2)
[2023-07-13 14:13] LABS: Magnesium 1.7 mg/dL (1.8-2.4)
== END 2023-07-12 20:16 | disposition home or self-care (01) ==
LOC: NCHCN 20:15
PROVIDERS: PCP Physician Assistant; Visit Provider Nurse Practitioner Gerontology
DX: E89.6 Postprocedural adrenocortical (-medullary) hypofunction (principal); E11.9 Type 2 diabetes mellitus without complications; I10 Essential (primary) hypertension; E03.9 Hypothyroidism, unspecified
CPT/HCPCS: 80053; 83735

== ENCOUNTER 2024-03-27 20:45 | Outpatient (REF) | payer MEDICARE, MEDICAID, SELFPAY ==
[2024-03-27 19:00] LABS: Hemoglobin A1C 5.8 % (<5.7)
[2024-03-27 19:26] LABS: ALT 14 U/L (16-63); AST 12 U/L (15-37); Albumin 3.4 g/dL (3.4-5.0); Alkaline Phosphatase 54 U/L (46-116); Anion Gap 8.7 mmol/L (3-11); BUN 15 mg/dL (7-18); Bilirubin, Total 0.6 mg/dL (0.2-1.0); CO2 30.3 mmol/L (21.0-32.0); CREATININE 1.6 mg/dL (0.70-1.30); Calcium 8.7 mg/dL (8.5-10.1); Chloride 105 mmol/L (98-107); Estimated GFR 43.83 (mL/min/1.73m2); Glucose 146 mg/dL (74-106); Potassium 3.4 mmol/L (3.5-5.1); Sodium 144 mmol/L (136-145); TSH (W/Ref FT4) 1.28 uIU/mL (0.36-3.74); Total Protein 6.4 g/dL (6.4-8.2); Vitamin B12 545 pg/mL (193-986)
[2024-03-27 19:29] LABS: Vitamin D 25 Total 28.6 ng/mL (30-100)
== END 2024-03-27 20:46 | disposition home or self-care (01) ==
LOC: LBN 20:45
PROVIDERS: PCP Physician Assistant; Visit Provider Nurse Practitioner Gerontology
DX: E11.22 Type 2 diabetes mellitus with diabetic chronic kidney disease (principal); E03.9 Hypothyroidism, unspecified; E83.42 Hypomagnesemia; I50.42 Chronic combined systolic (congestive) and diastolic (congestive) heart failure; D51.9 Vitamin B12 deficiency anemia, unspecified; Z79.84 Long term (current) use of oral hypoglycemic drugs
CPT/HCPCS: 80053; 82306; 82607; 83036; 84443

== ENCOUNTER 2024-06-25 19:28 | Outpatient (REF) | payer MEDICARE, MEDICAID, SELFPAY ==
[2024-06-25 18:25] LABS: Abs Immature Grans 0.01 10^3/uL (0.0-0.06); Absolute Basophil Count 0.05 10^3/uL (0.0-0.2); Absolute Lymphocyte Count 1.48 10^3/uL (1.2-3.4); Absolute Monocyte Count 0.38 10^3/uL (0.1-0.8); Basophils % 1.1 %; Eosinophils % 4.6 %; HCT 39.9 % (40.0-50.0); HGB 13.6 g/dL (13.5-17.5); Immature Grans % 0.2 %; MCH 33.3 pg (27.0-33.0); MCHC 34.1 % (32.0-36.0); MCV 98 fL (80-95); Monocytes % 8.7 %; Neutrophils % 51.4 %; Platelet Count 144 10^3/uL (130-400); RBC 4.09 10^6/uL (4.36-5.78); RDW 12.6 % (11.8-14.1); RDW-SD 43.5 fL; WBC 4.35 10^3/uL (4.4-10.8)
[2024-06-25 18:30] LABS: Absolute Neutrophil Count 2.24 10^3/uL (1.2-6.7)
[2024-06-25 18:54] LABS: Iron 86 ug/dL (65-175); Total Iron Binding Capacity 222 ug/dL (250-450); Transferrin Sat 39 % (20-55)
[2024-06-25 19:14] LABS: Hemoglobin A1C 5.6 % (<5.7)
[2024-06-25 19:20] LABS: ALT 22 U/L (16-63); AST 15 U/L (15-37); Albumin 3.5 g/dL (3.4-5.0); Alkaline Phosphatase 67 U/L (46-116); Anion Gap 5.1 mmol/L (3-11); BUN 18 mg/dL (7-18); Bilirubin, Total 0.53 mg/dL (0.2-1.0); CO2 35.9 mmol/L (21.0-32.0); CREATININE 1.6 mg/dL (0.70-1.30); Calcium 8.7 mg/dL (8.5-10.1); Chloride 101 mmol/L (98-107); Estimated GFR 43.83 (mL/min/1.73m2); Ferritin 292 ng/mL (26-388); Folate 5.4 ng/mL (8.6-20.0); Glucose 111 mg/dL (74-106); Magnesium 1.9 mg/dL (1.8-2.4); Potassium 3.9 mmol/L (3.5-5.1); Sodium 142 mmol/L (136-145); TSH (W/Ref FT4) 2.46 uIU/mL (0.36-3.74); Total Protein 6.4 g/dL (6.4-8.2); Vitamin B12 330 pg/mL (193-986); Vitamin D 25 Total 22.3 ng/mL (30-100)
--- OUTSIDE RECORDS SUMMARY | 2024-06-25 19:29 | XMS_ITS | Referral Summary ---
Author Organization [facility] Address [address] [place] [id number] Care Team Providers Care Emergency Registrar Name Role Phone Unavailable Primary Care Provider Unavailabl e Social History Tobacco Use Types Packs/Day Years Used Date Smoking Tobacco: Never Assessed Sex and Gender Information Value Date Recorded Sex Assigned at Not on file Gender Identity Not on file Sexual Orientation Not on file Plan of Treatment Not on file
--- OUTSIDE RECORDS SUMMARY | 2024-06-25 19:29 | XMS_ITS | Clinical Summary ---
Author Organization [facility] Address [address] [place] [id number] Care Team Providers Care Geospatial Specialist Name Role Phone Unavailable Primary Care Provider Unavailabl e Social History Tobacco Use Types Packs/Day Years Used Date Smoking Tobacco: Never Assessed Sex and Gender Information Value Date Recorded Sex Assigned at Not on file Gender Identity Not on file Sexual Orientation Not on file Plan of Treatment Health Maintenance Due Date Last Done Comments Hepatitis C Screen 1945 RSV Immunization ( o r 60+ Years) (1 - 1-dose 60+ series) 2006 Fall Risk Screening 2011 COVID-19 Vaccine ( season) 2023
--- OUTSIDE RECORDS SUMMARY | 2024-06-25 19:29 | XMS_ITS | Encounter Summary ---
Author Organization [facility] Address [address] [place] [id number] Care Team Providers Care Nuclear Technologist Name Role Phone Unavailable Primary Care Provider Unavailabl e Encounter Details Date Type Department Care Team (Late st Contact Info) Description 09/28/2022 Lab Requisition [facility] [place] [address] Outr Resulting Lab, Provider Social History Tobacco Use Types Packs/Day Years Used Date Smoking Tobacco: Never Assessed Sex and Gender Information Value Date Recorded Sex Assigned at Not on file Gender Identity Not on file Sexual Orientation Not on file documented as of this encounter Plan of Treatment Not on file documented as of this encounter Procedures Procedure Name Priority Date/Time Associated Diagnosis Comments FERRITIN Routine 09/27/2022 12:34 EST documented in this encounter Results * (ABNORMAL) FERRITIN (09/27/2022 12:34 EST) Ferritin 623(H) 22 - 322 ng/mL 09/29/2022 10:46 EST [facility] Blood VENOUS BLOOD / Unknown 09/27/2022 12:34 EST 09/28/2022 21:53 EST Provider Outr Resulting Lab CHEMISTRY & BLOOD GAS ORDERABLES [facility] [address] [place] [address] documented in this encounter Visit Diagnoses Not on filedocumented in this encounter
== END 2024-06-25 19:29 | disposition home or self-care (01) ==
LOC: LBN 19:28
PROVIDERS: PCP Physician Assistant; Referring Provider Nurse Practitioner Gerontology; Visit Provider Nurse Practitioner Gerontology
DX: E83.42 Hypomagnesemia (principal); R73.09 Other abnormal glucose; R53.82 Chronic fatigue, unspecified; I11.0 Hypertensive heart disease with heart failure; I11.9 Hypertensive heart disease without heart failure; G89.4 Chronic pain syndrome; D52.9 Folate deficiency anemia, unspecified; D51.9 Vitamin B12 deficiency anemia, unspecified
CPT/HCPCS: 80053; 82306; 82607; 82728; 82746; 83036; 83540; 83550; 83735; 84443; 85025

== ENCOUNTER 2024-12-26 10:24 | Emergency (ER) | payer MEDICARE, MEDICAID, SELFPAY ==
[2024-12-26] VITALS (26 sets, daily range): BP systolic 116–150; BP diastolic 65–88; PULSE 62–94; RESP 12–25; O2SAT 90–95
--- NOTE | 2024-12-26 10:30 | DI.CT_ITS ---
Exam(s) CT HEAD CERVICAL SPINE WO EXAM: CT HEAD CERVICAL SPINE WO CLINICAL HISTORY: fall HI, LOC. TECHNIQUE: Imaging Protocol: Axial computed tomography images with coronal and sagittal reformatted images were created and reviewed COMPARISON: CT CT HEAD WO from 11/09/2022 FINDINGS: CT Head: Ventricles and Extra axial spaces: Normal in size and morphology for the patient's age. Hemorrhage: None. 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 There are areas of decreased attenuation in the white matter consistent with chronic microvascular ischemic disease. No acute mass effect or findings to suggest an acute intracranial infarct. Midline shift: None. Brainstem/Cerebellum: Normal. Calvarium: Normal. Visualized Paranasal sinuses/Mastoids: Clear. Soft Tissues: There is soft tissue seen in the external auditory canals bilaterally likely reflecting cerumen. CT Cervical Spine: Bones: No acute fracture or subluxation. There is mild reversal of the normal cervical lordosis. Thi s may be due to muscle spasm or patient positioning. Age-appropriate moderately severe degenerative changes are seen in the cervical spine. Soft Tissues: Unremarkable. Lung Apices: Clear. IMPRESSION: 1. No acute intracranial process. 2. No acute fracture or subluxation in the cervical spine. RADIATION DOSE DELIVERED: 1,344mGy.cm Total DLP DATA REPOSITORY: All CT scans at this facility are submitted to the National Radiology Data Registry (NRDR) Dose Index Registry (DIR) with the [employer] (ACR). RADIATION OPTIMIZATION: All CT scans at this facility use at least one of these dose optimization te chniques: automated exposure control; mA and/or kV adjustment per patient size (includes targeted exa ms where dose is matched to clinical indication); or iterative reconstruction.
--- NOTE | 2024-12-26 10:33 | DI.RAD_ITS ---
Exam(s) XR ELBOW LT COMPLETE EXAM: XR ELBOW LT COMPLETE CLINICAL HISTORY: fall, elbow injury. TECHNIQUE: 2D digital imaging was performed of the left elbow. Three images were obtained. AP, lat eral and oblique views were obtained. COMPARISON: There are no priors for comparison. FINDINGS: BONES: No acute fracture is present. The bones are osteopenic. There are multiple lucency seen in th e distal humerus, proximal radius and proximal ulna. The findings are suspicious for diffuse infiltr ative disease. Multiple myeloma should be considered. JOINTS: The elbow is normally aligned. No joint effusion is seen. SOFT TISSUE: Normal. IMPRESSION: 1. No definite acute fracture or dislocation. 2. Abnormal mineralization as described above. A diffuse infiltrative disease such as multiple myelo ma should be considered. Please correlate clinically. DATA REPOSITORY: RADIATION DOSE DELIVERED:
[2024-12-26 11:05] LABS: Abs Immature Grans 0.05 10^3/uL (0.0-0.06); Absolute Basophil Count 0.04 10^3/uL (0.0-0.2); Absolute Eosinophil Count 0.08 10^3/uL (0.0-0.7); Absolute Lymphocyte Count 0.93 10^3/uL (1.2-3.4); Absolute Monocyte Count 0.51 10^3/uL (0.1-0.8); Absolute Neutrophil Count 8.78 10^3/uL (1.2-6.7); Basophils % 0.4 %; Eosinophils % 0.8 %; HCT 40.3 % (40.0-50.0); HGB 13.5 g/dL (13.5-17.5); Immature Grans % 0.5 %; MCH 31.7 pg (27.0-33.0); MCHC 33.5 % (32.0-36.0); MCV 95 fL (80-95); MPV 10.6 fL (8.0-11.0); Monocytes % 4.9 %; Neutrophils % 84.4 %; Platelet Count 155 10^3/uL (130-400); RBC 4.26 10^6/uL (4.36-5.78); WBC 10.39 10^3/uL (4.4-10.8)
[2024-12-26] MEDS: fentaNYL 100 MCG/2 ML VIAL 25 MCG IVP ×3 (11:12→14:01)
--- NOTE | 2024-12-26 11:12 | NUR.NOTE ---
Nursing Note: Pt arrived w/EMS w/infiltrate to R AC of Offirmev. IV had been discontinued prior to arrival. New IV established and IV Offirmev was completed here. Pharmacist contacted regarding the infiltrate, no special treatment needed, warm compresses
[2024-12-26 11:23] LABS: ALT 30 U/L (16-63); AST 24 U/L (15-37); Albumin 3.5 g/dL (3.4-5.0); Alkaline Phosphatase 120 U/L (46-116); Anion Gap 4.6 mmol/L (3-11); BUN 21 mg/dL (7-18); Bilirubin, Total 1.17 mg/dL (0.2-1.0); CO2 35.4 mmol/L (21.0-32.0); CREATININE 1.7 mg/dL (0.70-1.30); Calcium 9.2 mg/dL (8.5-10.1); Chloride 105 mmol/L (98-107); Creatine Kinase 113 U/L (39-308); Estimated GFR 40.75 (mL/min/1.73m2); Glucose 145 mg/dL (74-106); Potassium 3.3 mmol/L (3.5-5.1); Sodium 145 mmol/L (136-145); Total Protein 6.7 g/dL (6.4-8.2)
--- NOTE | 2024-12-26 11:30 | DI.RAD_ITS ---
Exam(s) XR ANKLE LT COMPLETE EXAM: XR ANKLE LT COMPLETE CLINICAL HISTORY: LT ankle pain + swelling s/p fall this AM TECHNIQUE: 2D digital imaging was performed of the left ankle. Three images were obtained. AP, lat eral and oblique views were obtained. COMPARISON: CR XR ANKLE LT COMPLETE from 09/02/2022 FINDINGS: BONES: No acute fracture is present. No bony destructive lesion is seen. There is an enthesophyte at the posterior calcaneus. There is a plantar calcaneal spur. Due to the positioning, the distal fibu la is not well visualized. No gross alignment abnormality is identified. JOINTS:The ankle mortise is normally aligned. SOFT TISSUE: Normal. IMPRESSION: No definite acute fracture or dislocation. DATA REPOSITORY: RADIATION DOSE DELIVERED:
[2024-12-26] MEDS: Normal Saline - Diluent 50 ML VIAL IJ (12:22)
--- NOTE | 2024-12-26 12:22 | DI.CT_ITS ---
Exam(s) CT CHEST/ABD/PEL W EXAM: CT CHEST/ABD/PEL W CLINICAL HISTORY: fall, hip and abd pain TECHNIQUE: Imaging Protocol: Axial computed tomography images with coronal and sagittal reformatted images were created and reviewed. Lung Computer Aided Detection (CAD) was utilized. CONTRAST MATERIAL: Intravenous: Omnipaque 350 contrast volume:100 mL Oral: No COMPARISON: CT CT CHEST PE CTA from 11/10/[address] CHEST/ABD/PEL WO from 11/26/[address] THORACIC LUMBAR SPINE WO from 11/26/2022 CR XR HIP PELVIS ADULT BL from 12/26/2024 FINDINGS: CHEST: Tracheobronchial tree: Patent where visualized. No evidence of bronchiectasis. Pulmonary parenchyma: No focal consolidating infiltrates are present. There is atelectasis and scarr ing in the lung bases, left greater than right. Visualized thyroid gland: Unremarkable. Mediastinum and Emerald: No dominant adenopathy or fluid collection. The esophagus is unremarkable. Pleura: No effusion or pneumothorax. Heart: Upper limits of normal in size. Two vessel coronary artery calcification is present. No jhoana cardial effusion. Pulmonary arteries: Due to the timing of the bolus, peripheral pulmonary artery evaluation is limited . No large central pulmonary embolism is present. Aorta: Thoracic aorta non-dilated. There is no evidence of dissection. Atherosclerotic calcification is present. Lymph nodes: Within normal limits. Soft tissues: Unremarkable. Bones:Within normal limits for the patient's age. Old healed left rib fractures are present. There also fractures which show evidence of some healing suggesting subacute fractures. ABDOMEN: Liver: Normal density. No measurable mass. There is no evidence of a hepatic laceration. There is a hepatic cyst present. Portal, Superior Mesenteric, and Splenic Veins: Unremarkable. Gallbladder and Biliary Tract: Cholelithiasis. The largest stone measures 5.5 cm. There is no bilia ry ductal dilatation. Pancreas: There is fatty infiltration of the pancreas. Spleen: No evidence of a splenic laceration Adrenals: No masses seen. Kidneys: Normal size, contour and axis. There is a 2 mm nonobstructing stone in the lower pole of the left kidney. There are bilateral renal cysts. There is a tiny hypodensity in the posterior aspect of the right kidney. It is too small for further characterization at this time. Nonemergent follow- up is recommended. This may include ultrasound. Abdominal Aorta: Abdominal portion non-dilated. Atherosclerotic calcification is seen. No evidence o f dissection. Bowel: No obstruction or bowel wall thickening. No evidence of appendicitis. The stomach is incomple tely distended limiting evaluation. Peritoneal Cavity: No ascites, collection or mesenteric inflammatory response. No free air. Lymph Nodes: Within normal limits. Bones: Within normal limits for the patient's age. There is L5 spondylolysis and grade 1 spondylolis thesis of L5 on S1. There is fusion of the L2 and L3 vertebral bodies. Soft Tissues: Unremarkable. PELVIS: Bladder: Symmetric distention, no gross wall thickening. Reproductive Organs: Unremarkable as visualized. Lymph Nodes: Within normal limits. Bones: Linear sclerosis seen in the left sacrum paralleling the sacroiliac joint likely reflecting a healing insufficiency fracture. There is an acute fracture involving the right pubic bone. There is associated hematoma present. There are areas of increased density seen within the hematoma consiste nt with active hemorrhage. There is no significant displacement. IMPRESSION: 1. Acute fracture involving the right pubic bone. 2. Old healed left rib fractures. Subacute healing left rib fractures. 3. No acute pulmonary process. 4. Fracture involving the right pubic bone with associated hemorrhage. There are areas of hyperdensi ty within the hemorrhage consistent with active bleeding. 5. Findings were discussed with Alyssa Ann at 1:45 p.m. on 12/26/2024. RADIATION DOSE DELIVERED: 956.75mGy.cm Total DLP DATA REPOSITORY: All CT scans at this facility are submitted to the National Radiology Data Registry (NRDR) Dose Index Registry (DIR) with the [employer] (ACR). RADIATION OPTIMIZATION: All CT scans at this facility use at least one of these dose optimization te chniques: automated exposure control; mA and/or kV adjustment per patient size (includes targeted exa ms where dose is matched to clinical indication); or iterative reconstruction.
[2024-12-26] MEDS: Omnipaque 350 MG/ML 100 ML BTL IJ (12:23)
--- NOTE | 2024-12-26 12:30 | DI.RAD_ITS ---
Exam(s) XR HIP PELVIS ADULT BL EXAM: XR HIP PELVIS ADULT BL CLINICAL HISTORY: pain to bilateral hips post fall. TECHNIQUE: 2D digital imaging was performed of the pelvis and bilateral hips. Four images were obta ined. AP pelvis and lateral views of both hips were obtained. COMPARISON: CR XR HIP LT AP LAT ONLY from 12/13/2022 FINDINGS: BONES: No acute fracture is present. No bony destructive lesion is seen. There again seen 3 partially threaded screws transfixing an old left femoral neck fracture. The bones are osteopenic. Degenerat kane changes are seen in the lower lumbar spine. JOINTS: No dislocation present. SOFT TISSUE: There is contrast seen in the urinary bladder from the patient's CT examination performe d the same day. IMPRESSION: No acute fracture or dislocation. DATA REPOSITORY: RADIATION DOSE DELIVERED:
[2024-12-26] MEDS: ACETAMINOPHEN 500 MG/50 ML BAG 200 MG IVPB (12:54)
[2024-12-26] MEDS: Lidocaine 2% Jelly 6 ML SYR (14:18)
[2024-12-26] MEDS: MORPHine Oral Solution 10 MG/5 ML CUP PO (14:47)
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
== END 2024-12-26 16:59 | disposition home or self-care (01) ==
PROVIDERS: Emergency Provider Physician Assistant
DX: S32.501A Unspecified fracture of right pubis, initial encounter for closed fracture (principal); R58 Hemorrhage, not elsewhere classified; S50.02XA Contusion of left elbow, initial encounter; E87.6 Hypokalemia; M25.471 Effusion, right ankle; I25.10 Atherosclerotic heart disease of native coronary artery without angina pectoris; I25.2 Old myocardial infarction; E03.9 Hypothyroidism, unspecified; F03.90 Unspecified dementia, unspecified severity, without behavioral disturbance, psychotic disturbance, mood disturbance, and anxiety; I12.9 Hypertensive chronic kidney disease with stage 1 through stage 4 chronic kidney disease, or unspecified chronic kidney disease; N18.30 Chronic kidney disease, stage 3 unspecified; Z86.73 Personal history of transient ischemic attack (TIA), and cerebral infarction without residual deficits; Z79.01 Long term (current) use of anticoagulants; Z87.891 Personal history of nicotine dependence; W06.XXXA Fall from bed, initial encounter; Y92.092 Bedroom in other non-institutional residence as the place of occurrence of the external cause
CPT/HCPCS: 73521; 74177; 80053; 82550; 86850; 86900; 86901; 96365; 96375; 96376; 99285; 70450; 71260; 72125; 73080; 73610; 85025; 99284; J0131; J3010; J3490